=== PATIENT | male | born 1940 | race Hispanic/Latino ===

== ENCOUNTER 2019-04-27 12:34 | Inpatient (IN) | payer MEDICARE, OTHER ==
[2019-04-27] MEDS ORDERED: ATROPINE 1 MG/ML VIAL IV ONE ×2 (13:27→14:20)
[2019-04-27] MEDS ORDERED: ATROPINE 0.1% (1 MG/10 ML) CARDIAC SYRINGE ONE ×2 (13:37→14:32)
--- NOTE | 2019-04-27 14:06 | XRay Report ---
CHEST 1 VIEW INDICATION / CLINICAL INFORMATION: syncope. COMPARISON: None available. FINDINGS: SUPPORT DEVICES: None. HEART / MEDIASTINUM: Moderately enlarged LUNGS / PLEURA: There is pulmonary venous congestion with interstitial and early alveolar edema at th e bases. There may be a minimal right effusion. No pneumothorax. ADDITIONAL FINDINGS: No significant additional findings. IMPRESSION: 1 Moderately severe heart failure Signer Name: Aurelio Gregory MD Signed: 04/27/2019 2:01 PM Workstation Name: [id number]
[2019-04-27 14:08] LABS: Basophils % (Auto) 0.3 % (0.0-1.8); Eosinophils # (Auto) 0.2 K/mm3 (0.0-0.4); Eosinophils % (Auto) 1.7 % (0.0-4.3); Hematocrit 43.8 % (35.5-45.6); Hemoglobin 14.7 gm/dl (11.8-15.2); Lymphocytes # (Auto) 1.2 K/mm3 (1.2-5.4); Lymphocytes % (Auto) 12.8 % (13.4-35.0); Mean Corpuscular HGB Conc 34 % (32-34); Mean Corpuscular Volume 98 fl (84-94); Monocytes # (Auto) 0.7 K/mm3 (0.0-0.8); Monocytes % (Auto) 7.2 % (0.0-7.3); Platelet Count 140 K/mm3 (140-440); Red Blood Count 4.46 M/mm3 (3.65-5.03); Red Cell Distribution Width 15.1 % (13.2-15.2)
--- NOTE | 2019-04-27 14:08 | History and Physical Report ---
History of Present Illness Chief complaint: I just passed out History of present illness: 78 YO Male with Obesity Hypoventilation Syndrome, HTN, DM, CHF presents to ED for evaluation. PT states that he was in his bathroom having a bowel movement when he experienced an acute onset of lightheadedness and subsequent loss of consciousness. Pt fell onto the floor and sustained an abrasion to his forehead. Pt collier not recall how long he was unconscious, and does not remember any additional details. EMS notified, and upon arrival the patient was found to be in distress and transported to [facility]. Pt seen and evaluated in ED and found to have Hear Block, with symptomatic bradycardia. Pt treated with atropine without resolution of symptoms. Pt treated with external pacing. Cardiology consulted in ED. Pt admitted to ICU with continuous telemetry monitoring. Pt family at bedside. Advanced care planning conducted. Pt and family acknowledge understanding and agreement with care plan. Pt acknowledges dypsnea on exertion, shortness of breath, decreased exercise tolerance, and leg edema. Pt denies fever, chills, CP, NVD, Trauma, BRBPR, Productive Cough, or recent ill contacts. Past History Past Medical History: other (hpi) Past Surgical History: No surgical history, Other (reviewed) Social history: , lives with family Family history: no significant family history (reviewed) Medications and Allergies Allergies Allergy/AdvReac Type Severity Reaction Status Date / Time No Known Allergies Allergy Unverified 02/14/15 14:25 Home Medications Medication Instructions Recorded Confirmed Last Taken Type Furosemide [Lasix TAB] 40 mg PO QDAY 02/14/15 04/27/19 04/26/19 History Simvastatin [Zocor TAB] 40 mg PO QHS 02/14/15 04/27/19 04/26/19 History carvediloL [Coreg] 6.25 mg PO BID 02/14/15 04/27/19 04/26/19 History Allopurinol [Zyloprim] 300 mg PO QDAY 04/27/19 04/27/19 04/26/19 History Calcitriol [Rocaltrol] 0.25 mcg PO 3XW 04/27/19 04/27/19 Unknown History Glimepiride [Amaryl] 2 mg PO QAM 04/27/19 04/27/19 04/26/19 History Review of Systems Constitutional: no weight loss, no weight gain, no fever, no chills Ears, nose, mouth and throat: no ear pain, no ear discharge, no tinnitis, no decreased hearing, no nose pain Cardiovascular: shortness of breath, dyspnea on exertion, decreased exercise tolerance, no chest pain, no orthopnea, no palpitations Respiratory: no cough, no cough with sputum Gastrointestinal: no nausea, no vomiting, no diarrhea, no change in bowel habits Genitourinary Male: no hematuria, no flank pain, no discharge, no urinary hesitancy, no nocturia Rectal: no pain, no incontinence, no bleeding Musculoskeletal: no neck stiffness, no shooting arm pain, no low back pain, no shooting leg pain Integumentary: no rash, no pruritis, no redness, no sores, no wounds Neurological: no head injury, no transient paralysis, no paralysis, no weakness, no parathesias Psychiatric: no memory loss, no change in sleep habits, no insomnia, no hypersomnia, no change in libido Endocrine: no excessive thirst, no polyuria, no nocturia Hematologic/Lymphatic: no easy bruising, no easy bleeding, no lymphadenopathy, no lymphedema Allergic/Immunologic: no urticaria, no allergic rhinitis, no persistent infections, no anaphylaxis, no angioedema Exam - Constitutional Vitals: Temp Pulse Resp BP Pulse Ox 98.2 F 42 L 24 130/51 93 04/27/19 12:53 04/27/19 12:53 04/27/19 12:53 04/27/19 12:53 04/27/19 12:53 General appearance: Present: mild distress, obese - EENT Eyes: Present: PERRL ENT: hearing intact, clear oral mucosa - Neck Neck: Present: supple, normal ROM - Respiratory Respiratory effort: normal Respiratory: bilateral: CTA - Cardiovascular Heart Sounds: Present: S1 & S2. Absent: rub, click - Extremities Extremities: pulses symmetrical, No edema Peripheral Pulses: within normal limits - Abdominal General gastrointestinal: Present: soft, non-tender, non-distended, normal bowel sounds Male genitourinary: Present: normal - Integumentary Integumentary: Present: clear, warm, dry - Musculoskeletal Musculoskeletal: gait normal, strength equal bilaterally - Psychiatric Psychiatric: appropriate mood/affect, intact judgment & insight - Neurologic Neurologic: CNII-XII intact, moves all extremities Results - Labs CBC & Chem 7: 04/27/19 13:24 11/17/19 13:24 Assessment and Plan - Patient Problems (1) Heart block Current Visit: No Status: Acute Plan to address problem: Admit to ICU, External pacing, Atropine at bedside, Cardiology consulted in ED, Telemetry, Echo, serial EKG (2) CHF (congestive heart failure) Current Visit: No Status: Acute Qualifiers: Heart failure type: systolic Heart failure chronicity: acute on chronic Qualified Code(s): I50.23 - Acute on chronic systolic (congestive) heart failure Plan to address problem: Telemetry, Strict I/O, daily weight, echo, thyroid panel, magnesium level, cardiology consulted in ED, supplemental oxygen, Chest x ray, bnp (3) Symptomatic bradycardia Current Visit: No Status: Acute Plan to address problem: Telemetry, external pacing, atropine at bedside, supportive care. (4) KARINE (acute kidney injury) Current Visit: No Status: Acute Plan to address problem: IVF resuscitation therapy as tolerated, Nephrology consulted in ED. (5) HTN (hypertension) Current Visit: Yes Status: Acute Qualifiers: Hypertension type: essential hypertension Qualified Code(s): I10 - Essential (primary) hypertension Plan to address problem: Monitor bp q shift, supportive care, continue medical management (6) Diabetes Current Visit: Yes Status: Acute Plan to address problem: ADA diet, insulin, accu check, hypoglycemia protocol (7) DVT prophylaxis Current Visit: No Status: Acute Plan to address problem: SCD to BLE while in bed.
--- NOTE | 2019-04-27 14:15 | Emergency Department Report ---
ED Syncope HPI - General Chief Complaint: Syncope Stated Complaint: SYNCOPY/SOB Time Seen by Provider: 04/27/19 13:50 Source: patient, family, EMS Exam Limitations: no limitations - History of Present Illness Initial Comments: Patient is a 78-year-old male that comes emergency with complaints of syncopal episode 1 with brief loss of consciousness. patient states she was sitting on the toilet at home and became lightheaded and passed out. Patient's loss of consciousness was brief. Patient states he sustained a an abrasion to his forehead and eyebrows. Patient denies any complaints at this time except for shortness of breath. Patient states he is short of breath which is worse with exertion and better with rest. Patient states she's had a cough recently and upper respiratory symptoms for 1-2 weeks. Timing/Prior Episodes: single episode today Precipitating Factors: Positive: diaphoresis, lightheadedness Context: sitting Loss of Consciousness: brief (seconds) Current Symptoms: lightheadedness, other - Related Data Allergies/Adverse Reactions: Allergies No Known Allergies Allergy (Unverified 02/14/15 14:25) Home Medications: Ambulatory Orders Furosemide [Lasix TAB] 40 mg PO QDAY 02/14/15 Simvastatin [Zocor TAB] 40 mg PO QHS 02/14/15 carvediloL [Coreg] 6.25 mg PO BID 02/14/15 Allopurinol [Zyloprim] 300 mg PO QDAY 04/27/19 Calcitriol [Rocaltrol] 0.25 mcg PO 3XW 04/27/19 Glimepiride [Amaryl] 2 mg PO QAM 04/27/19 ED Review of Systems ROS: Stated complaint: SYNCOPY/SOB Other details as noted in HPI Constitutional: denies: chills, fever Eyes: denies: eye pain, eye discharge, vision change ENT: denies: ear pain, throat pain Respiratory: shortness of breath, SOB with exertion, SOB at rest. denies: cough, wheezing Cardiovascular: dyspnea on exertion. denies: chest pain, palpitations Endocrine: no symptoms reported Gastrointestinal: denies: abdominal pain, nausea, diarrhea Genitourinary: denies: urgency, dysuria Musculoskeletal: denies: back pain, joint swelling, arthralgia Skin: denies: rash, lesions Neurological: denies: headache, weakness, paresthesias Psychiatric: denies: anxiety, depression Hematological/Lymphatic: denies: easy bleeding, easy bruising ED Past Medical Hx - Past Medical History Previous Medical History?: Yes Hx Hypertension: Yes Hx Congestive Heart Failure: Yes Hx Diabetes: Yes (non-insulin dependent) Hx Renal Disease: Yes (Dr. Ibanez; not on HD) Additional medical history: kidney failure - Social History Smoking Status: Former Smoker Substance Use Type: None - Medications Home Medications: Home Medications Medication Instructions Recorded Confirmed Last Taken Type Furosemide [Lasix TAB] 40 mg PO QDAY 02/14/15 04/27/19 04/26/19 History Simvastatin [Zocor TAB] 40 mg PO QHS 02/14/15 04/27/19 04/26/19 History carvediloL [Coreg] 6.25 mg PO BID 02/14/15 04/27/19 04/26/19 History Allopurinol [Zyloprim] 300 mg PO QDAY 04/27/19 04/27/19 04/26/19 History Calcitriol [Rocaltrol] 0.25 mcg PO 3XW 04/27/19 04/27/19 Unknown History Glimepiride [Amaryl] 2 mg PO QAM 04/27/19 04/27/19 04/26/19 History ED Physical Exam - General Limitations: No Limitations ED Course Vital Signs 04/27/19 04/27/19 04/27/19 12:53 13:01 13:15 Temperature 98.2 F Pulse Rate 42 L 38 L Respiratory 24 14 17 Rate Blood Pressure 130/51 130/51 130/51 Blood Pressure [Left] O2 Sat by Pulse 93 93 92 Oximetry 04/27/19 04/27/19 04/27/19 13:31 13:45 14:01 Temperature Pulse Rate 72 Respiratory 21 17 13 Rate Blood Pressure 119/39 122/48 Blood Pressure [Left] O2 Sat by Pulse 94 96 Oximetry 04/27/19 04/27/19 04/27/19 14:15 14:31 14:58 Temperature Pulse Rate 45 L Respiratory 15 Rate Blood Pressure 122/56 138/75 140/80 Blood Pressure [Left] O2 Sat by Pulse 98 99 Oximetry 04/27/19 04/27/19 04/27/19 15:26 16:17 18:43 Temperature Pulse Rate 45 L 50 L 44 L Respiratory 14 17 Rate Blood Pressure Blood Pressure 124/52 133/61 [Left] O2 Sat by Pulse 98 97 Oximetry - Reevaluation(s) Reevaluation #1: She'll evaluation done. Patient placed on a pacer and his rate improved. Patient captured at 10 mA. Cardiology will be consult. Patient states after being placed on the pacer his shortness of breath improved. 04/27/19 13:50 Reevaluation #2: I discussed all results with patient. I discussed plan of care with patient. Patient agrees plan of care and admission. Patient will be admitted to the hospitalist service. 04/27/19 14:19 - Consultations Consultation #1: cardiology consult. Dr. Cedric Rasmussen states that he is going to come and see the patient. 04/27/19 14:16 Consultation #2: Hospitalist consult for admission. Hospitalist admit patient. 04/27/19 14:17 ED Medical Decision Making - Lab Data Result diagrams: 04/27/19 13:24 04/27/19 13:24 - EKG Data EKG shows normal: axis, intervals, QRS complexes, ST-T waves Rate: bradycardia - EKG Data Interpretation: other (junctional rhythm noted. Prolonged QRS consistent with a right bundle branch block.) - Radiology Data Radiology results: report reviewed, image reviewed CT head/brain wo con INDICATION / CLINICAL INFORMATION: 78 years Male; Syncope. TECHNIQUE: Routine CT head without contrast. All CT scans at this location are performed using CT dose reduction for ALARA by means of automated exposure control. COMPARISON: CT scan of the brain from 02/14/2019 FINDINGS: BRAIN / INTRACRANIAL CONTENTS: No acute hemorrhage, mass effect, midline shift, hydrocephalus, or acute, large territorial infarct. No chronic infarct or focal area of encephalomalacia. Moderate cortical involution is seen. Bilateral symmetric prominent extracerebral space in the frontal region due to involution. Periventricular and deep hemispheric white matter are normal. CRANIOCERVICAL JUNCTION: No significant abnormality. ORBITS: No significant abnormality of visualized orbits. SINUSES / MASTOIDS: No significant abnormality of the visualized paranasal sinuses or mastoid air cells. ADDITIONAL FINDINGS: Soft tissue emphysema is seen bilaterally in the suprazy gomatic emission technician space, right buccal space and in the cheek. These appear to be along blood vess els. Has there been recent injection of infusion intravenously IMPRESSION: I do not see acute parenchymal lesion in the brain Air bubbles in the deep spaces of the neck bilaterally, probably in the blood vessels Recent intravenous injection or infusion CHEST 1 VIEW INDICATION / CLINICAL INFORMATION: syncope. COMPARISON: None available. FINDINGS: SUPPORT DEVICES: None. HEART / MEDIASTINUM: Moderately enlarged LUNGS / PLEURA: There is pulmonary venous congestion with interstitial and early alveolar edema at the bases. There may be a minimal right effusion. No pneumothorax. ADDITIONAL FINDINGS: No significant additional findings. IMPRESSION: 1 Moderately severe heart failure - Medical Decision Making Patient is a 78-year-old male that presents emergency room with syncope. Patient sustained an abrasion to his forehead. Patient brought in by EMS and found to be bradycardic. Patient's clinical findings consistent with some diabetic bradycardia. Patient placed on a external pacer and given atropine. Patient responded temporarily to atropine and was then placed on an external pacer. Patient captured with the external pacer however was unable to get a heart rate above 50. Cardiology consult and early in the ER visit. Cardiology stated they're coming to place a temporary pacer. Hospitalist admit the patient. Patient's labs unremarkable. Patient's chest x-ray shows CHF. EKG consistent with junctional bradycardia. - Differential Diagnosis symptomatic bradycardia. Syncope. Facial abrasion. Critical Care Time: Yes Critical care time in (mins) excluding proc time.: 35 Critical care attestation.: If time is entered above; I have spent that time in minutes in the direct care of this critically ill patient, excluding procedure time. Critical Care Time: 35 minutes ED Disposition Clinical Impression: Hypoxia, Symptomatic bradycardia Syncope Qualifiers: Syncope type: unspecified Qualified Code(s): R55 - Syncope and collapse Abrasion of forehead Qualifiers: Encounter type: initial encounter Qualified Code(s): S00.81XA - Abrasion of other part of head, initial encounter CHF (congestive heart failure) Qualifiers: Heart failure type: systolic Heart failure chronicity: acute on chronic Qualified Code(s): I50.23 - Acute on chronic systolic (congestive) heart failure Disposition: OP ADMIT IP TO THIS HOSP Is pt being admited?: Yes Does the pt Need Aspirin: No Condition: Critical Time of Disposition: 14:16
[2019-04-27 14:23] LABS: INR 1.19 (0.87-1.13)
[2019-04-27 14:40] LABS: Alanine Aminotransferase 61 units/L (7-56); Albumin 3.6 g/dL (3.9-5); BUN/Creatinine Ratio 19; Blood Urea Nitrogen 32 mg/dL (9-20); Calcium 9.1 mg/dL (8.4-10.2); Hemolysis Index 8
[2019-04-27] MEDS ORDERED: DEXTROSE 50% IN WATER (25GM) 50 ML SYRINGE IV PRN (15:44)
--- NOTE | 2019-04-27 15:53 | Cat Scan Report ---
CT head/brain wo con INDICATION / CLINICAL INFORMATION: 78 years Male; Syncope. TECHNIQUE: Routine CT head without contrast. All CT scans at this location are performed using CT dos e reduction for ALARA by means of automated exposure control. COMPARISON: CT scan of the brain from 02/14/2019 FINDINGS: BRAIN / INTRACRANIAL CONTENTS: No acute hemorrhage, mass effect, midline shift, hydrocephalus, or ac [place], large territorial infarct. No chronic infarct or focal area of encephalomalacia. Moderate cortic al involution is seen. Bilateral symmetric prominent extracerebral space in the frontal region due to involution. Periventricular and deep hemispheric white matter are normal. CRANIOCERVICAL JUNCTION: No significant abnormality. ORBITS: No significant abnormality of visualized orbits. SINUSES / MASTOIDS: No significant abnormality of the visualized paranasal sinuses or mastoid air vimal ls. ADDITIONAL FINDINGS: Soft tissue emphysema is seen bilaterally in the suprazygomatic air moving technician space , right buccal space and in the cheek. These appear to be along blood vessels. Has there been recent injection of infusion intravenously IMPRESSION: I do not see acute parenchymal lesion in the brain Air bubbles in the deep spaces of the neck bilaterally, probably in the blood vessels Recent intraven ous injection or infusion Signer Name: Aimee Munoz MD Signed: 04/27/2019 3:49 PM Workstation Name: [id number]
[2019-04-27] MEDS ORDERED: INSULIN REGULAR, HUMAN 100 UNITS/1 ML ONE (18:29)
[2019-04-27] MEDS: INSULIN LISPRO 100 UNIT/ML SUB-Q SCH (18:37)
[2019-04-27] MEDS ORDERED: LIDOCAINE (1%) 10 MG/1 ML VIAL 20 ML MDV ONE (20:42)
[2019-04-27] MEDS ORDERED: SODIUM CHLORIDE IRRI 500 ML 500 ML IR ONE (20:42)
[2019-04-27] MEDS ORDERED: fentaNYL 100 MCG/2 ML INJ ONE (20:43)
[2019-04-27] MEDS ORDERED: MIDAZOLAM 2 MG/2 ML INJ ONE (20:43)
[2019-04-27] MEDS ORDERED: ceFAZolin/Water 2 GM/20 ML 2 GM/20 ML SYRINGE IV ONE (20:43)
[2019-04-27] MEDS ORDERED: SODIUM CHLORIDE 0.9% 500 ML 500 ML ONE (21:01)
--- NOTE | 2019-04-27 21:50 | Cardiac Catherization Report ---
BRIEF HISTORY: The patient is a 78-year-old gentleman who had a syncopal episode at home and in the Emergency Room, was noted to have bradycardia with complete heart block and a ventricular escape rhythm. He was short of breath with this rhythm. He improved and stabilized with an external pacemaker. A transvenous pacemaker was felt to be most appropriate treatment at this time. PROCEDURE: The patient was prepped and draped in a sterile fashion exposing the right femoral region. He received subcutaneous Xylocaine. A 6-Uzbek sheath was introduced in the right femoral vein via the Seldinger technique. A 6-Uzbek balloon-tipped pacemaker catheter was advanced under fluoroscopy and positioned in the right ventricle. It was sutured in place. Threshold of 1 milliamp was achieved and it was set at a synchronous MA of 3. FINAL IMPRESSION: Complete heart block with bradycardia and shortness of breath. A temporary pacemaker was successfully placed to stabilize the patient. COMPLICATIONS: None. BLOOD LOSS: 5-10 mL TISSUE SAMPLES: None. PREPROCEDURE DIAGNOSIS: Complete heart block with bradycardia. POSTPROCEDURE DIAGNOSIS: Complete heart block with bradycardia. JOB# [id number] EZEKIEL/VITOR
--- NOTE | 2019-04-27 23:35 | Consultation ---
HISTORY OF PRESENT ILLNESS: The patient is a 78-year-old male with multiple medical problems, well known to Dr. Carlos Glover who has a history of hypertension, diabetes, congestive heart failure, chronic kidney disease, previous TIA and prior history of smoking. There is no history of coronary artery disease, cardiomyopathy, valvular heart disease. He has also had chronic ankle edema with venous insufficiency, therapies in the past that did not seem to improve the swelling. He has been experiencing some dyspnea on exertion lately and some mild fatigue. There has been no chest pain. Earlier today, he became lightheaded and lost consciousness on the toilet. He sustained a head injury. He did not describe any palpitations, fever, chills, cough, fever, sputum production, dysuria or skin lesions. He did not describe any neurologic symptoms. He states that he has lost some weight in the past. He is well known to Dr. Glover and has had an ultrasound of the heart, not long ago. He has been compliant with medications. He states his blood pressure has been under control. He has not had any bradyarrhythmias in the past. He has been on a beta-tara. He did not describe any thyroid issues. SOCIAL HISTORY: Smoking, prior smoker. Alcohol. No heavy use. FAMILY HISTORY: Unremarkable. MEDICATIONS: See the nurse's list. ALLERGIES: None. OPERATIONS: None described. REVIEW OF SYSTEMS: No other complaints or medical problems other than what is described in the history of present illness. He sees Dr. Ibanez for chronic kidney disease. He does not describe any clearcut sleep disorders, but his sleep is not that great. PHYSICAL EXAMINATION: GENERAL: Well-developed, moderately obese, no acute distress. Alert, oriented, cooperative. Mental status normal. EYES, NOSE, AND THROAT: Unremarkable. NECK: Reveals moderate JVD. There are no bruits. Neck is supple, no masses. LUNGS: Clear. No labored respirations. HEART: Regular rhythm. Heart sounds distant. No rubs, murmurs, gallops appreciable. External pacemaker in place. ABDOMEN: Soft, nontender, no masses. EXTREMITIES: No cyanosis, clubbing, 1+ pedal edema with venous insufficiency changes. Peripheral pulses are intact, but diminished. NEUROLOGIC: Symmetrical. SKIN: Clear. LABORATORY DATA: EKG shows complete heart block with ventricular escape rhythm. IMPRESSION: 1. Complete heart block with bradycardia and syncope today. He has been on a beta tara, so this may be playing a role. Consider sick sinus syndrome. TSH is minimally elevated, so this is probably not an issue. 2. History of congestive heart failure with mild diastolic heart failure at this time. 3. Chronic kidney disease, stable. 4. Diabetes, fair control. 5. Obesity with possible obesity hypoventilation syndrome and sleep apnea. 6. Venous insufficiency with chronic edema. 7. History of transient ischemic attack. Note there is no history of hyperlipidemia or coronary artery disease. PLAN: Temporary pacemaker. Hold beta tara, reviewed the previous workup by Dr. Carlos Glover, consider permanent pacemaker for persistent bradycardia. JOB# [id number] JDS/NTS
[2019-04-28] MEDS: INSULIN LISPRO 100 UNIT/ML SUB-Q SCH ×4 (01:10→18:48)
[2019-04-28] MEDS ORDERED: ALUM-MAG HYDROXIDE-SIMETHICONE 200-200-20MG/5ML ORAL LIQD 30 ML PO PRN (03:35)
--- NOTE | 2019-04-28 09:26 | Consultation ---
History of Present Illness Consult date: 04/28/19 Requesting physician: LAY CANALES Reason for consult: other (Heart Block requiring pacing; Syncope) History of present illness: PCCM CONSULT NOTE (Full dictation # ) Please see dictated notes for full details Past History Past Medical History: other (hpi) Past Surgical History: No surgical history, Other (reviewed) Social history: , lives with family Family history: no significant family history (reviewed) Medications and Allergies Allergies Allergy/AdvReac Type Severity Reaction Status Date / Time No Known Allergies Allergy Unverified 02/14/15 14:25 Home Medications Medication Instructions Recorded Confirmed Last Taken Type Furosemide [Lasix TAB] 40 mg PO QDAY 02/14/15 04/27/19 04/26/19 History Simvastatin [Zocor TAB] 40 mg PO QHS 02/14/15 04/27/19 04/26/19 History carvediloL [Coreg] 6.25 mg PO BID 02/14/15 04/27/19 04/26/19 History Allopurinol [Zyloprim] 300 mg PO QDAY 04/27/19 04/27/19 04/26/19 History Calcitriol [Rocaltrol] 0.25 mcg PO 3XW 04/27/19 04/27/19 Unknown History Glimepiride [Amaryl] 2 mg PO QAM 04/27/19 04/27/19 04/26/19 History Active Meds: Active Medications Al Hydrox/Mg Hydrox/Simethicone (Alum-Mag Hydrox-Simeth [id number]/5ml) 30 ml PO Q6H PRN PRN Reason: Indigestion Last Admin: 04/28/19 03:55 Dose: 30 ml Documented by: Dextrose (D50w (25gm) Syringe) 50 ml IV Q30MIN PRN; Protocol PRN Reason: Hypoglycemia Insulin Human Lispro (Humalog) 0 unit SUB-Q Q6HR MARTINEZ; Protocol Last Admin: 04/28/19 06:31 Dose: Not Given Documented by: Latanoprost (Latanoprost 0.005%) 1 drops OU QHS MARTINEZ Sodium Chloride (Sodium Chloride Flush Syringe 10 Ml) 10 ml IV BID MARTINEZ Sodium Chloride (Sodium Chloride Flush Syringe 10 Ml) 10 ml IV PRN PRN PRN Reason: LINE FLUSH Physical Examination Vital signs: Vital Signs Temp Pulse Resp BP Pulse Ox 98.2 F 42 L 24 130/51 93 04/27/19 12:53 04/27/19 12:53 04/27/19 12:53 04/27/19 12:53 04/27/19 12:53 Results - Laboratory Findings CBC and BMP: 04/27/19 13:24 04/27/19 13:24 PT/INR, D-dimer PT 15.0 Sec. (12.2-14.9) H 04/27/19 13:24 INR 1.19 (0.87-1.13) H 04/27/19 13:24 Abnormal lab findings: Abnormal Labs 04/27/19 04/27/19 04/27/19 13:24 13:24 13:24 MCV 98 H MCH 33 H Lymph % (Auto) 12.8 L Seg Neutrophils % 78.0 H PT 15.0 H INR 1.19 H Carbon Dioxide 21 L BUN 32 H Creatinine 1.7 H Glucose 297 H POC Glucose AST 43 H ALT 61 H NT-Pro-B Natriuret Pep Albumin 3.6 L TSH 04/27/19 04/27/19 04/27/19 13:24 13:24 18:21 MCV MCH Lymph % (Auto) Seg Neutrophils % PT INR Carbon Dioxide BUN Creatinine Glucose POC Glucose 252 H AST ALT NT-Pro-B Natriuret Pep 3410 H Albumin TSH 4.790 H
[2019-04-28] MEDS ORDERED: TRAVOPROST OU SCH (10:00)
[2019-04-28] MEDS ORDERED: BUMETANIDE 1 MG/4 ML INJ IV ONE (10:29)
--- NOTE | 2019-04-28 10:32 | Consultation ---
History of Present Illness - Reason for Consult chronic renal failure - History of Present Illness 78-year-old gentleman with a significant medical history of hypertension, congestive heart failure, chronic kidney disease. Admitted with syncope while using the bathroom. He was also found to have symptomatic bradycardia nephrology consulted He reports some cough with some persistent phlegm also complains of subjective fevers Denies sick contacts he has associated orthopnea and PND as well as lower ext remity edema He was admitted to the ICU and was started on external pacing for his bradycardia he does report history of chronic kidney disease Dr. Ibanez creatinine in 2015 was 2.1 Past History Past Medical History: other (hpi) Past Surgical History: No surgical history, Other (reviewed) Social history: , lives with family Family history: no significant family history (reviewed) Medications and Allergies Allergies Allergy/AdvReac Type Severity Reaction Status Date / Time No Known Allergies Allergy Unverified 02/14/15 14:25 Home Medications Medication Instructions Recorded Confirmed Last Taken Type Furosemide [Lasix TAB] 40 mg PO QDAY 02/14/15 04/27/19 04/26/19 History Simvastatin [Zocor TAB] 40 mg PO QHS 02/14/15 04/27/19 04/26/19 History carvediloL [Coreg] 6.25 mg PO BID 02/14/15 04/27/19 04/26/19 History Allopurinol [Zyloprim] 300 mg PO QDAY 04/27/19 04/27/19 04/26/19 History Calcitriol [Rocaltrol] 0.25 mcg PO 3XW 04/27/19 04/27/19 Unknown History Glimepiride [Amaryl] 2 mg PO QAM 04/27/19 04/27/19 04/26/19 History Active Meds: Active Medications Al Hydrox/Mg Hydrox/Simethicone (Alum-Mag Hydrox-Simeth 409-512-94jo/5ml) 30 ml PO Q6H PRN PRN Reason: Indigestion Last Admin: 04/28/19 03:55 Dose: 30 ml Documented by: Dextrose (D50w (25gm) Syringe) 50 ml IV Q30MIN PRN; Protocol PRN Reason: Hypoglycemia Insulin Human Lispro (Humalog) 0 unit SUB-Q Q6HR MARTINEZ; Protocol Last Admin: 04/28/19 06:31 Dose: Not Given Documented by: Latanoprost (Latanoprost 0.005%) 1 drops OU QHS MARTINEZ Sodium Chloride (Sodium Chloride Flush Syringe 10 Ml) 10 ml IV BID MARTINEZ Sodium Chloride (Sodium Chloride Flush Syringe 10 Ml) 10 ml IV PRN PRN PRN Reason: LINE FLUSH Review of Systems Constitutional: no weight loss, no weight gain, no fever, no chills (ID and GERD outbreak of resected as apples and robust) Ears, nose, mouth and throat: no deferred, no ear pain, no ear discharge Cardiovascular: orthopnea, edema, dyspnea on exertion, no chest pain, no rapid/irregular heart beat Respiratory: cough with sputum, no cough Gastrointestinal: no abdominal pain, no nausea, no vomiting Genitourinary Male: no dysuria, no hematuria, no flank pain Musculoskeletal: no neck stiffness, no neck pain, no shooting arm pain Integumentary: no deferred, no rash, no pruritis Neurological: no head injury, no transient paralysis, no paralysis, no weakness Psychiatric: no anxiety, no memory loss, no change in sleep habits Endocrine: no cold intolerance, no heat intolerance Hematologic/Lymphatic: no easy bruising, no easy bleeding Allergic/Immunologic: no urticaria, no allergic rhinitis Exam - Vital Signs Vital signs: Vital Signs Temp Pulse Resp BP Pulse Ox 98.2 F 42 L 24 130/51 93 04/27/19 12:53 04/27/19 12:53 04/27/19 12:53 04/27/19 12:53 04/27/19 12:53 - General Appearance General appearance: well-developed, well-nourished EENT: ATNC, PERRL, mucous membranes moist Neck: Present: neck supple Respiratory: Decreased Breath Sounds Heart: regular, S1S2 Gastrointestinal: Present: normal, normoactive bowel sounds Integumentary: no rash Neurologic: alert and oriented x3, CN 3-12 intact Musculoskeletal: Present: other (edema) Psychiatric: mood/affect appropriate Results - Lab Results 04/27/19 13:24 04/27/19 13:24 Most recent lab results Calcium 9.1 mg/dL (8.4-10.2) 04/27/19 13:24 Magnesium 2.10 mg/dL (1.7-2.3) 04/27/19 13:24 - Image Kidney/bladder ultrasound: other Assessment and Plan - Patient Problems (1) Chronic kidney disease, stage III (moderate) Current Visit: Yes Status: Acute Plan to address problem: Chronic kidney disease stage III creatinine in 2015 was 2.11 Will Horacio to office records to see what recent baseline creatinine has been Current creatinine is 1.7 Chest x-ray with pulmonary congestion Will initiate diuretics Obtain renal ultrasound avoid nephrotoxins (2) CHF (congestive heart failure) Current Visit: Yes Status: Acute Plan to address problem: Congestive heart failure Obtain echocardiogram Chest x-ray revealed With bilateral right greater than left basilar opacities consistent with pulmonary congestion will give 2 mg of Bumex now then continue Bumex 1 mg IV twice a day (3) Symptomatic bradycardia Current Visit: Yes Status: Acute Plan to address problem: Symptomatic bradycardia has received external pacing (4) Metabolic acidosis Current Visit: Yes Status: Acute Plan to address problem: Metabolic acidosis Due to chronic kidney disease should improve with diuresis
[2019-04-28] MEDS ORDERED: BUMETANIDE 2.5 MG/10 ML VIAL IV ONE (11:00)
[2019-04-28 12:46] LABS: Calcium 9.1 mg/dL (8.4-10.2)
--- NOTE | 2019-04-28 13:25 | Progress Note ---
Assessment and Plan Complete heart block s/p transvenous pacemaker coreg discontinued Chronic kidney disease Congestive heart failure History of COPD Elevated transaminases Subjective Date of service: 04/28/19 Interval history: Transvenous pacemaker of right groin. Patient complains of shortness of breath with coughs and congestion. Objective Vital Signs Temp Pulse Pulse Pulse Resp BP BP 04/28/19 12:50 70 15 142/80 04/28/19 12:40 70 19 142/80 04/28/19 12:30 70 13 142/80 04/28/19 12:20 69 11 L 142/80 04/28/19 12:10 70 18 142/80 04/28/19 12:00 70 70 20 123/70 04/28/19 11:50 71 13 123/70 04/28/19 11:40 69 18 123/70 04/28/19 11:30 67 22 123/70 04/28/19 11:20 73 17 123/70 04/28/19 11:10 68 13 123/70 04/28/19 11:00 75 17 135/81 04/28/19 10:50 69 13 135/81 04/28/19 10:40 68 15 135/81 04/28/19 10:30 67 17 135/81 04/28/19 10:20 71 12 135/81 04/28/19 10:10 69 12 135/81 04/28/19 10:00 70 16 126/72 04/28/19 09:50 73 17 126/72 04/28/19 09:40 68 27 H 126/72 04/28/19 09:30 68 21 136/70 04/28/19 09:20 67 24 136/70 04/28/19 09:10 71 30 H 136/70 04/28/19 09:00 73 16 136/70 04/28/19 08:50 77 13 125/56 04/28/19 08:40 73 24 125/56 04/28/19 08:30 67 12 125/56 04/28/19 08:20 67 12 125/56 04/28/19 08:10 67 16 125/56 04/28/19 08:00 98.4 F 67 67 15 125/56 04/28/19 07:50 68 18 125/56 04/28/19 07:40 67 16 125/56 11/18/19 07:30 67 17 125/56 18/19 07:20 67 18 125/56 18/19 07:10 67 16 125/56 18/19 07:00 67 15 128/63 18/19 06:50 68 17 128/63 18/19 06:40 67 18 128/63 18/19 06:30 67 20 128/63 18/19 06:20 67 16 128/63 18/19 06:10 68 17 128/63 18/19 06:00 68 19 140/93 18/19 05:50 69 11 L 140/93 18/19 05:40 68 16 140/93 18/19 05:30 69 19 140/93 18/19 05:20 69 21 140/93 18/19 05:10 68 12 140/93 18/19 05:00 70 19 151/84 18/19 04:50 68 12 151/84 18/19 04:40 67 14 151/84 18/19 04:30 67 13 151/84 18/19 04:20 69 18 151/84 18/19 04:10 68 12 151/84 18/19 04:00 97.9 F 68 15 145/82 18/19 03:50 67 21 145/82 18/19 03:40 68 10 L 145/82 18/19 03:30 67 12 145/82 18/19 03:20 68 14 145/82 18/19 03:10 69 22 145/82 18/19 03:00 67 74 69 20 147/60 18/19 02:50 68 17 147/60 18/19 02:40 68 18 147/60 18/19 02:30 71 17 147/60 18/19 02:20 69 16 147/60 18/19 02:10 69 18 147/60 18/19 02:00 68 17 152/113 18/19 01:50 69 12 152/113 18/19 01:40 68 18 152/113 18/19 01:30 68 18 152/113 18/19 01:20 67 17 152/113 11/18/19 01:10 67 15 152/113 04/28/19 01:00 67 67 69 15 04/28/19 00:59 67 11 L 04/27/19 23:57 69 69 04/27/19 22:00 70 04/27/19 20:31 19 114/60 04/27/19 20:21 15 114/60 04/27/19 20:11 19 107/79 04/27/19 20:01 12 107/79 04/27/19 19:51 17 141/54 04/27/19 19:41 20 181/103 04/27/19 19:31 18 181/103 04/27/19 19:21 12 181/103 04/27/19 19:10 16 140/80 04/27/19 19:01 10 L 181/103 04/27/19 18:51 12 181/103 04/27/19 18:43 44 L 17 133/61 04/27/19 18:41 21 133/61 04/27/19 18:31 14 133/61 04/27/19 18:21 17 133/61 04/27/19 18:11 20 140/57 04/27/19 18:01 72 17 140/57 04/27/19 17:51 77 16 140/57 04/27/19 17:41 71 19 124/52 04/27/19 17:31 18 124/52 04/27/19 17:21 14 124/52 04/27/19 17:11 69 10 L 124/52 04/27/19 17:01 18 124/52 04/27/19 16:51 14 124/52 04/27/19 16:41 17 124/52 04/27/19 16:31 18 124/52 04/27/19 16:21 13 124/52 04/27/19 16:17 50 L 14 124/52 04/27/19 16:11 18 140/80 04/27/19 16:01 16 140/80 04/27/19 15:51 16 140/80 04/27/19 15:41 14 130/48 04/27/19 15:31 15 130/48 04/27/19 15:26 45 L 04/27/19 15:21 23 130/48 04/27/19 14:58 140/80 04/27/19 14:31 138/75 04/27/19 14:15 45 L 15 122/56 04/27/19 14:01 13 122/48 04/27/19 13:45 17 119/39 04/27/19 13:31 72 21 Pulse Ox 04/28/19 12:50 96 04/28/19 12:40 95 04/28/19 12:30 95 04/28/19 12:20 96 04/28/19 12:10 98 04/28/19 12:00 95 04/28/19 11:50 95 04/28/19 11:40 95 04/28/19 11:30 96 04/28/19 11:20 94 04/28/19 11:10 94 04/28/19 11:00 94 04/28/19 10:50 95 04/28/19 10:40 95 04/28/19 10:30 04/28/19 10:20 04/28/19 10:10 04/28/19 10:00 80 L 04/28/19 09:50 75 L 04/28/19 09:40 04/28/19 09:30 04/28/19 09:20 04/28/19 09:10 04/28/19 09:00 04/28/19 08:50 04/28/19 08:40 04/28/19 08:30 04/28/19 08:20 04/28/19 08:10 04/28/19 08:00 82 L 04/28/19 07:50 04/28/19 07:40 04/28/19 07:30 04/28/19 07:20 04/28/19 07:10 04/28/19 07:00 95 04/28/19 06:50 95 04/28/19 06:40 95 04/28/19 06:30 95 18 06:20 94 18 06:10 95 04/28/19 06:00 94 18 05:50 95 18/19 05:40 94 18/19 05:30 96 18/19 05:20 95 18/19 05:10 94 18 05:00 95 18 04:50 93 1819 04:40 96 18 04:30 91 18/19 04:20 94 18/19 04:10 93 18/19 04:00 95 18/19 03:50 94 18/19 03:40 94 18/19 03:30 94 18/19 03:20 93 18/19 03:10 94 18/19 03:00 95 18/19 02:50 96 18/ 02:40 97 18/ 02:30 76 L 18 02:20 95 18/19 02:10 97 18/19 02:00 96 04/28/19 01:50 94 18/ 01:40 96 18/ 01:30 98 18/ 01:20 98 18 01:10 98 18/ 01:00 95 04/28/ 00:59 95 04/27/19 23:57 1719 22:00 19 20:31 98 17/19 20:21 92 17/19 20:11 96 17/19 20:01 99 17/19 19:51 96 17/19 19:41 98 17/19 19:31 97 17/19 19:21 96 17/19 19:10 97 17/19 19:01 96 17/19 18:51 97 17/19 18:43 97 17/19 18:41 99 17/19 18:31 97 17/19 18:21 97 17/19 18:11 96 17/19 18:01 98 17/19 17:51 97 17/19 17:41 98 17/19 17:31 99 17/19 17:21 96 17/19 17:11 96 17/19 17:01 98 17/19 16:51 98 17/19 16:41 97 17/19 16:31 99 17/19 16:21 92 17/19 16:17 98 17/19 16:11 98 17/19 16:01 98 17/19 15:51 98 17/19 15:41 97 11/17/19 15:31 94 04/27/19 15:26 04/27/19 15:21 85 04/27/19 14:58 04/27/19 14:31 99 04/27/19 14:15 98 04/27/19 14:01 96 04/27/19 13:45 94 04/27/19 13:31 - Physical Examination General: No Apparent Distress HEENT: Positive: PERRL Neck: Positive: neck supple Cardiac: Positive: Other (paced) Lungs: Positive: Decreased Breath Sounds - Labs and Meds Cardiac Enzymes 04/27/19 Range/Units 13:24 AST 43 H (5-40) units/L Coagulation 04/27/19 Range/Units 13:24 PT 15.0 H (12.2-14.9) Sec. INR 1.19 H (0.87-1.13) CBC 04/27/19 Range/Units 13:24 WBC 9.6 (4.5-11.0) K/mm3 RBC 4.46 (3.65-5.03) M/mm3 Hgb 14.7 (11.8-15.2) gm/dl Hct 43.8 (35.5-45.6) % Plt Count 140 (140-440) K/mm3 Lymph # 1.2 (1.2-5.4) K/mm3 [place] # 0.7 (0.0-0.8) K/mm3 Eos # 0.2 (0.0-0.4) K/mm3 Baso # 0.0 (0.0-0.1) K/mm3 Comprehensive Metabolic Panel 04/27/19 04/28/19 Range/Units 13:24 12:08 Sodium 141 140 (137-145) mmol/L Potassium 4.4 4.5 (3.6-5.0) mmol/L Chloride 104.6 102.9 (98-107) mmol/L Carbon Dioxide 21 L 23 (22-30) mmol/L BUN 32 H 28 H (9-20) mg/dL Creatinine 1.7 H 1.5 (0.8-1.5) mg/dL Glucose 297 H 212 H (75-100) mg/dL Calcium 9.1 9.1 (8.4-10.2) mg/dL AST 43 H (5-40) units/L ALT 61 H (7-56) units/L Alkaline Phosphatase 81 (35-129) units/L Total Protein 6.5 (6.3-8.2) g/dL Albumin 3.6 L (3.9-5) g/dL
--- NOTE | 2019-04-28 15:12 | Consultation ---
History of Present Illness Consult date: 04/28/19 Requesting physician: EMILY JEWELL Reason for consult: other (Syncope with symptomatic bradycardia) History of present illness: 78 YO Male with Obesity Hypoventilation Syndrome, HTN, DM, CHF presents to ED for evaluation. PT states that he was in his bathroom having a bowel movement when he experienced an acute onset of lightheadedness and subsequent loss of consciousness. Pt fell onto the floor and sustained an abrasion to his forehead. Pt collier not recall how long he was unconscious, and does not remember any addit ional details. EMS notified, and upon arrival the patient was found to be in distress and transported to [facility]. Pt seen and evaluated in ED and found to have Hear Block, with symptomatic bradycardia. Pt treated with atropine without resolution of symptoms. Pt treated with external pacing. Cardiology consulted in ED. Patient was taken to laboratory analyst and femoral temporary pacemaker placed. He is admitted in the ICU for monitoring. he was seen and examined. Vitals, labs, medications, chart and imaging were reviewed. He is lying peacefully in bed and denies any symptoms. he is paced on telemetry Past History Past Medical History: other (hpi) Past Surgical History: No surgical history, Other (reviewed) Social history: , lives with family Family history: no significant family history (reviewed) Medications and Allergies Allergies Allergy/AdvReac Type Severity Reaction Status Date / Time No Known Allergies Allergy Unverified 02/14/15 14:25 Home Medications Medication Instructions Recorded Confirmed Last Taken Type Furosemide [Lasix TAB] 40 mg PO QDAY 02/14/15 04/27/19 04/26/19 History Simvastatin [Zocor TAB] 40 mg PO QHS 02/14/15 04/27/19 04/26/19 History carvediloL [Coreg] 6.25 mg PO BID 02/14/15 04/27/19 04/26/19 History Allopurinol [Zyloprim] 300 mg PO QDAY 04/27/19 04/27/19 04/26/19 History Calcitriol [Rocaltrol] 0.25 mcg PO 3XW 04/27/19 04/27/19 Unknown History Glimepiride [Amaryl] 2 mg PO QAM 04/27/19 04/27/19 04/26/19 History Active Meds: Active Medications Al Hydrox/Mg Hydrox/Simethicone (Alum-Mag Hydrox-Simeth [id number]/5ml) 30 ml PO Q6H PRN PRN Reason: Indigestion Last Admin: 04/28/19 03:55 Dose: 30 ml Documented by: Dextrose (D50w (25gm) Syringe) 50 ml IV Q30MIN PRN; Protocol PRN Reason: Hypoglycemia Furosemide (Lasix) 60 mg IV 0600,1800 MARTINEZ Insulin Human Lispro (Humalog) 0 unit SUB-Q Q6HR MARTINEZ; Protocol Last Admin: 04/28/19 13:21 Dose: 2 unit Documented by: Latanoprost (Latanoprost 0.005%) 1 drops OU QHS MARTINEZ Sodium Chloride (Sodium Chloride Flush Syringe 10 Ml) 10 ml IV BID MARTINEZ Last Admin: 04/28/19 12:02 Dose: 10 ml Documented by: Sodium Chloride (Sodium Chloride Flush Syringe 10 Ml) 10 ml IV PRN PRN PRN Reason: LINE FLUSH Review of Systems All systems: negative (as in HPI) Physical Examination Vital signs: Vital Signs Temp Pulse Resp BP Pulse Ox 98.2 F 42 L 24 130/51 93 04/27/19 12:53 04/27/19 12:53 04/27/19 12:53 04/27/19 12:53 04/27/19 12:53 Vitals reviewed. General appearance: Present: mild distress, obese - EENT Eyes: Present: PERRL ENT: hearing intact, clear oral mucosa - Neck Neck: Present: supple, normal ROM - Respiratory Respiratory effort: normal Respiratory: bilateral: CTA - Cardiovascular Heart Sounds: Present: S1 & S2. Absent: rub, click - Extremities Extremities: pulses symmetrical, No edema Peripheral Pulses: within normal limits Right groin transvenous pacemaker - Abdominal General gastrointestinal: Present: soft, non-tender, non-distended, normal bowel sounds Male genitourinary: Present: normal - Integumentary Integumentary: Present: clear, warm, dry - Musculoskeletal Musculoskeletal: gait normal, strength equal bilaterally - Psychiatric Psychiatric: appropriate mood/affect, intact judgment & insight - Neurologic Neurologic: CNII-XII intact, moves all extremities Results - Laboratory Findings CBC and BMP: 04/27/19 13:24 04/29/19 12:12 PT/INR, D-dimer PT 15.0 Sec. (12.2-14.9) H 04/27/19 13:24 INR 1.19 (0.87-1.13) H 04/27/19 13:24 Abnormal lab findings: Abnormal Labs 04/27/19 04/27/19 04/27/19 13:24 13:24 13:24 MCV 98 H MCH 33 H Lymph % (Auto) 12.8 L Seg Neutrophils % 78.0 H PT 15.0 H INR 1.19 H Carbon Dioxide 21 L BUN 32 H Creatinine 1.7 H Glucose 297 H POC Glucose AST 43 H ALT 61 H NT-Pro-B Natriuret Pep Albumin 3.6 L TSH 04/27/19 04/27/19 04/27/19 13:24 13:24 18:21 MCV MCH Lymph % (Auto) Seg Neutrophils % PT INR Carbon Dioxide BUN Creatinine Glucose POC Glucose 252 H AST ALT NT-Pro-B Natriuret Pep 3410 H Albumin TSH 4.790 H 04/28/19 04/28/19 04/28/19 06:39 12:08 12:59 MCV MCH Lymph % (Auto) Seg Neutrophils % PT INR Carbon Dioxide BUN 28 H Creatinine Glucose 212 H POC Glucose 118 H 183 H AST ALT NT-Pro-B Natriuret Pep Albumin TSH - Diagnostic Findings Chest x-ray: image reviewed Assessment and Plan Complete heart block s/p transvenous pacemaker History of COPD Chronic kidney disease Congestive heart failure Elevated transaminases Morbid obesity -Continue with ICU monitoring -Supplemental oxygen to keep O2 sats>90% -Chronic COPD medications, Bronchodilators -Plan for cardiac cath to evaluate for CAD -Avoid nephrotoxins, renally dose all medications -Heart failure measures, cardioprotective measures -Transthoracic echocardiogram -VTE prophylaxis -Chronic home medications -Weight loss and life style modifications -Monitor LFTs -Accuchecks with glycemic control, keep blood glucose <180mg/dL, avoid hypoglycemia Discussed with patient and updated him re care plan. Plan for cardiac cath and PPM possible tomorrow per Cardiology. Thank you for the consult. Will follow
[2019-04-28] MEDS ORDERED: BUMETANIDE 1 MG/4 ML INJ IV SCH (18:00)
[2019-04-28] MEDS ORDERED: FUROSEMIDE 40 MG/4 ML INJ IV SCH (18:00)
[2019-04-28] MEDS: FUROSEMIDE 100 MG/10 ML INJ IV SCH (18:48)
--- NOTE | 2019-04-28 19:33 | Progress Note ---
Assessment and Plan Assessment and plan: 78 YO Male with Obesity Hypoventilation Syndrome, HTN, DM, CHF presents to ED for evaluation. PT states that he was in his bathroom having a bowel movement when he experienced an acute onset of lightheadedness and subsequent loss of consciousness. Pt fell onto the floor and sustained an abrasion to his forehead. Pt collier not recall how long he was unconscious, and does not remember any additional details. EMS notified, and upon arrival the patient was found to be in distress and transported to [facility]. Pt seen and evaluated in ED and found to have Hear Block, with symptomatic bradycardia. Pt treated with atropine without resolution of symptoms. Pt treated with external pacing. Cardiology consulted in ED. Pt admitted to ICU with continuous telemetry monitoring. Pt family at bedside. Advanced care planning conducted. Pt and family acknowledge understanding and agreement with care plan. Pt acknowledges dypsnea on exertion, shortness of breath, decreased exercise tolerance, and leg edema. Pt denies f ever, chills, CP, NVD, Trauma, BRBPR, Productive Cough, or recent ill contacts. - Patient Problems (1) Heart block-complete Current Visit: No Status: Acute Plan to address problem: Continue IMCU CARE, Complete supine position stressed to patient and staff Cardiology input noted, Counselling provided again to patient about contrast induced nephropathy and he verbalized understadning Continue with External pacing, Atropine at bedside, Will need permanent pacemaker (2) CHF (congestive heart failure) Current Visit: No Status: Acute Qualifiers: Heart failure type: systolic Heart failure chronicity: acute on chronic Qualified Code(s): I50.23 - Acute on chronic systolic (congestive) heart failure Plan to address problem: Telemetry, Strict I/O, daily weight, echo, thyroid panel, magnesium level, cardiology consulted in ED, supplemental oxygen, Chest x ray, bnp (3) Symptomatic bradycardia Current Visit: No Status: Acute Plan to address problem: Telemetry, external pacing, atropine at bedside, supportive care. (4) KARINE (acute kidney injury) Current Visit: No Status: Acute Plan to address problem: IVF resuscitation therapy as tolerated, Nephrology consulted in ED. (5) HTN (hypertension) Current Visit: Yes Status: Acute Qualifiers: Hypertension type: essential hypertension Qualified Code(s): I10 - Essential (primary) hypertension Plan to address problem: Monitor bp q shift, supportive care, continue medical management (6) Diabetes Current Visit: Yes Status: Acute Plan to address problem: ADA diet, insulin, accu check, hypoglycemia protocol (7) DVT prophylaxis Current Visit: No Status: Acute Plan to address problem: SCD to BLE while in bed. History Interval history: Patient seen and examined, no new complaints, awaiting complete cardiac work up. No adverse event reported to me overnight Hospitalist Physical - Constitutional Vitals: Temp Pulse Resp BP Pulse Ox 98.1 F 74 20 123/79 95 04/28/19 14:00 04/28/19 18:00 04/28/19 18:00 04/28/19 18:00 04/28/19 18:00 General appearance: Present: mild distress, obese - EENT Eyes: Present: PERRL, EOM intact ENT: hearing intact, clear oral mucosa - Neck Neck: Present: supple, normal ROM - Respiratory Respiratory effort: normal Respiratory: bilateral: CTA - Cardiovascular Rhythm: regularly irregular Heart Sounds: Present: S1 & S2, diastolic murmur. Absent: systolic murmur - Extremities Extremities: no ischemia, pulses intact, pulses symmetrical, Full ROM Extremity abnormal: edema (trace) Peripheral Pulses: within normal limits - Abdominal General gastrointestinal: soft, non-tender, non-distended, normal bowel sounds - Integumentary Integumentary: Present: warm - Psychiatric Psychiatric: appropriate mood/affect, intact judgment & insight, memory intact, cooperative - Neurologic Neurologic: CNII-XII intact, moves all extremities - Allied Health Allied health notes reviewed: nursing Results - Labs CBC & Chem 7: 04/27/19 13:24 04/28/19 12:08 Labs: Laboratory Last Values WBC 9.6 K/mm3 (4.5-11.0) 04/27/19 13:24 RBC 4.46 M/mm3 (3.65-5.03) 04/27/19 13:24 Hgb 14.7 gm/dl (11.8-15.2) 04/27/19 13:24 Hct 43.8 % (35.5-45.6) 04/27/19 13:24 MCV 98 fl (84-94) H 04/27/19 13:24 MCH 33 pg (28-32) H 04/27/19 13:24 MCHC 34 % (32-34) 04/27/19 13:24 RDW 15.1 % (13.2-15.2) 04/27/19 13:24 Plt Count 140 K/mm3 (140-440) 04/27/19 13:24 Lymph % (Auto) 12.8 % (13.4-35.0) L 04/27/19 13:24 [place] % (Auto) 7.2 % (0.0-7.3) 04/27/19 13:24 Eos % (Auto) 1.7 % (0.0-4.3) 04/27/19 13:24 Baso % (Auto) 0.3 % (0.0-1.8) 04/27/19 13:24 Lymph # 1.2 K/mm3 (1.2-5.4) 04/27/19 13:24 [place] # 0.7 K/mm3 (0.0-0.8) 04/27/19 13:24 Eos # 0.2 K/mm3 (0.0-0.4) 04/27/19 13:24 Baso # 0.0 K/mm3 (0.0-0.1) 04/27/19 13:24 Seg Neutrophils % 78.0 % (40.0-70.0) H 04/27/19 13:24 Seg Neutrophils # 7.5 K/mm3 (1.8-7.7) 04/27/19 13:24 PT 15.0 Sec. (12.2-14.9) H 04/27/19 13:24 INR 1.19 (0.87-1.13) H 04/27/19 13:24 Sodium 140 mmol/L (137-145) 04/28/19 12:08 Potassium 4.5 mmol/L (3.6-5.0) 04/28/19 12:08 Chloride 102.9 mmol/L (98-107) 04/28/19 12:08 Carbon Dioxide 23 mmol/L (22-30) 04/28/19 12:08 Anion Gap 19 mmol/L 04/28/19 12:08 BUN 28 mg/dL (9-20) H 04/28/19 12:08 Creatinine 1.5 mg/dL (0.8-1.5) 04/28/19 12:08 Estimated GFR 46 ml/min 04/28/19 12:08 BUN/Creatinine Ratio 19 % 04/28/19 12:08 Glucose 212 mg/dL (75-100) H 04/28/19 12:08 POC Glucose 167 (70-105) H 04/28/19 18:15 Calcium 9.1 mg/dL (8.4-10.2) 04/28/19 12:08 Magnesium 2.10 mg/dL (1.7-2.3) 04/27/19 13:24 Total Bilirubin 0.70 mg/dL (0.1-1.2) 04/27/19 13:24 AST 43 units/L (5-40) H 04/27/19 13:24 ALT 61 units/L (7-56) H 04/27/19 13:24 Alkaline Phosphatase 81 units/L (35-129) 04/27/19 13:24 Troponin T < 0.010 ng/mL (0.00-0.029) 04/27/19 13:24 NT-Pro-B Natriuret Pep 3410 pg/mL (0-900) H 04/27/19 13:24 Total Protein 6.5 g/dL (6.3-8.2) 04/27/19 13:24 Albumin 3.6 g/dL (3.9-5) L 04/27/19 13:24 Albumin/Globulin Ratio 1.2 % 04/27/19 13:24 TSH 4.790 mlU/mL (0.270-4.200) H 04/27/19 13:24 Thyroxine (T4) 7.6 ug/dL (4.0-12.0) 04/27/19 13:24 Active Medications - Current Medications Current Medications: Generic Name Dose Route Start Last Admin Trade Name Freq PRN Reason Stop Dose Admin Al Hydrox/Mg Hydrox/Simethicone 30 ml 04/28/19 03:35 04/28/19 03:55 Alum-Mag Hydrox-Simeth 384-993-97pm/5ml PO 30 ml Q6H PRN Administration Indigestion Dextrose 50 ml 04/27/19 15:44 D50w (25gm) Syringe IV Q30MIN PRN Hypoglycemia Protocol Furosemide 60 mg 04/28/19 18:00 04/28/19 18:48 Lasix IV 60 mg 0600,1800 MARTINEZ Administration Insulin Human Lispro 0 unit 04/27/19 18:00 04/28/19 18:48 Humalog SUB-Q 2 unit Q6HR MARTINEZ Administration Protocol Latanoprost 1 drops 04/27/19 22:00 Latanoprost 0.005% OU QHS MARTINEZ Sodium Chloride 10 ml 04/27/19 22:00 04/28/19 12:02 Sodium Chloride Flush Syringe 10 Ml IV 10 ml BID MARTINEZ Administration Sodium Chloride 10 ml 04/27/19 14:10 Sodium Chloride Flush Syringe 10 Ml IV PRN PRN LINE FLUSH
[2019-04-29] MEDS: INSULIN LISPRO 100 UNIT/ML SUB-Q SCH ×4 (01:06→18:07)
[2019-04-29 05:40] LABS: INR 1.22 (0.87-1.13)
[2019-04-29] MEDS: LATANOPROST 0.005% OPHTH SOLN 2.5 ML OU SCH ×3 (05:57→22:25)
[2019-04-29] MEDS: FUROSEMIDE 100 MG/10 ML INJ IV SCH ×2 (06:17→18:08)
[2019-04-29] MEDS ORDERED: SODIUM CHLORIDE IRRI 1000 ML 1,000 ML, .VANCOMYCIN VIAL 1,000 MG IR ONE (08:20)
[2019-04-29] MEDS ORDERED: ASPIRIN 81 MG TAB CHEW PO ONE (09:22)
[2019-04-29] MEDS ORDERED: ASPIRIN 81 MG TAB CHEW ONE (09:26)
[2019-04-29] MEDS ORDERED: HEPARIN/NS 5000 UNIT/500ML 1,000 ML IR ONE (09:36)
[2019-04-29] MEDS ORDERED: SODIUM CHLORIDE 0.9% 500 ML 500 ML ONE (09:45)
--- NOTE | 2019-04-29 09:52 | XRay Report ---
CHEST 1 VIEW 04/29/2019 9:30 AM INDICATION / CLINICAL INFORMATION: pulmonary edema. COMPARISON: Chest x-ray 04/27/2019. FINDINGS: SUPPORT DEVICES: None. HEART / MEDIASTINUM: Stable mild cardiomegaly. LUNGS / PLEURA: Mildly improved pulmonary vascular congestion and interstitial edema. No pneumothorax . ADDITIONAL FINDINGS: No significant additional findings. IMPRESSION: 1. Mildly improved vascular congestion and interstitial edema compared with 04/27/2019. Signer Name: Navneet Iverson MD Signed: 04/29/2019 9:48 AM Workstation Name: [id number]
[2019-04-29] MEDS ORDERED: hydrALAZINE 20 MG/1 ML INJ IV PRN ×2 (10:00→15:55)
[2019-04-29] MEDS: MIDAZOLAM 2 MG/2 ML INJ ONE ×2 (10:08→10:29)
[2019-04-29] MEDS: fentaNYL 100 MCG/2 ML INJ ONE ×2 (10:08→10:29)
[2019-04-29] MEDS: NITROGLYCERIN SYRINGE 3 ML ONE ×2 (10:09→10:32)
[2019-04-29] MEDS: LIDOCAINE (2%) 20 MG/1 ML VIAL 20 ML MDV INFILTRATI ONE ×3 (10:09→10:31)
[2019-04-29] MEDS: VERAPAMIL 5 MG/2 ML INJ ONE ×2 (10:10→10:32)
[2019-04-29] MEDS: HEPARIN 10,000 UNITS/10 ML VIAL ONE ×2 (10:10→10:32)
--- NOTE | 2019-04-29 11:20 | Event Note ---
Date: 04/29/19 Cardiac cath via R radial, shows multivessel CAD. Total contrast 40cc. Refer to tertiary care center for further revasc and device therapy.
[2019-04-29] MEDS ORDERED: SODIUM CHLORIDE 0.9% 1000 ML 1,000 ML IV SCH (12:00)
[2019-04-29 12:06] LABS: Bilirubin,Urine NEG (Negative); Blood,Urine NEG (Negative); Color,Urine Straw (Yellow); Protein,Urine <15 mg/dL mg/dL (Negative); Urobilinogen,Urine < 2.0 mg/dL (<2.0)
[2019-04-29 12:21] LABS: Amphetamine Screen,Urine PRESUMPTIVE NEGATIVE; Benzodiazepines Screen,Urine PRESUMPTIVE NEGATIVE; Cannabinoid Screen,Urine PRESUMPTIVE NEGATIVE; Cocaine Screen,Urine PRESUMPTIVE NEGATIVE; Methadone Screen,Urine PRESUMPTIVE NEGATIVE; Opiate Screen,Urine PRESUMPTIVE NEGATIVE
[2019-04-29 12:33] LABS: WBC,Urine < 1.0 /HPF (0.0-6.0)
[2019-04-29 12:49] LABS: Calcium 8.9 mg/dL (8.4-10.2)
--- NOTE | 2019-04-29 13:39 | Cardiac Catherization Report ---
REASON FOR PROCEDURE: The patient is a 78-year-old man who presented to the hospital with acute congestive heart failure, pulmonary edema, and complete heart block. Emergently, he underwent temporary pacemaker placement and aggressive diuretic therapy for heart failure. An echocardiogram demonstrated severe left ventricular systolic dysfunction with ejection fraction of 25-30%. He is referred to the lab technologist today for a coronary angiography. He has chronic kidney disease with a baseline creatinine of 1.6-1.7. Risks and benefits of the procedure including a higher risk of contrast nephropathy were discussed with the patient and he accepts to proceed. PROCEDURES: 1. Left heart catheterization. 2. Selective left and right coronary angiography. 3. Sedation time, start 10:29 and end 10:38. DESCRIPTION OF PROCEDURE: The patient was prepped and draped in a sterile fashion after the informed consent. The right radial cath site was prepped and draped after a negative Paulo's test. The right radial artery was entered using a Seldinger technique followed by placement of a 6-[place] hydrophilic sheath. Routine radial cocktail was administered via the sheath. Selective left and right coronary angiography was performed using a #3.5 left Juaquin and a #4 right Juaquin. The catheters were then removed, sheath removed, and hemostasis achieved using a TR band. The patient was returned to the postprocedure unit in a stable condition. There were no complications. The total contrast used for the procedure was less than 40 mL. FINDINGS: HEMODYNAMICS: Ascending aortic pressure was 130/78. CORONARY ANGIOGRAPHY: The left main coronary artery contained mild luminal irregularities. Left anterior descending artery contained a mild diffuse atherosclerosis of its [id number] segment. There was an up to 50% stenosis of the mid segment at the origin of a large mid diagonal branch. Following this lesion, there appeared to be another focal hazy 50-70% stenosis of the mid LAD. The circumflex artery was notably occluded in its distal segment, leading to a large terminal obtuse marginal. This was a long area of total occlusion, with reconstitution by left to left collaterals. The right coronary artery was dominant. This vessel contained a long, complex, and ulcerated up to 85% stenosis of the mid segment. CONCLUSION: 1. Multivessel coronary artery disease as above. 2. Total contrast used, 40 mL. RECOMMENDATION: The patient's angiograms will be reviewed for options for a percutaneous or surgical revascularization. JOB# [id number] TIBURCIO/VITOR
--- NOTE | 2019-04-29 14:31 | Progress Note ---
Assessment and Plan Complete heart block s/p transvenous pacemaker s/p Cardiac Cath History of COPD Chronic kidney disease Congestive heart failure Elevated transaminases Morbid obesity Plan to transfer to tertiary center per Cardiolgy recommendations Continue all current care and close monitoring All other care as documented below -Continue with ICU monitoring -Supplemental oxygen to keep O2 sats>90% -Chronic COPD medications, Bronchodilators -Avoid nephrotoxins, renally dose all medications -Monitor renal function closley -Heart failure measures, cardioprotective measures -VTE prophylaxis -Chronic home medications -Weight loss and life style modifications -Continue to trend and monitor LFTs -Accuchecks with glycemic control, keep blood glucose <180mg/dL, avoid hypoglycemia Subjective Date of service: 04/29/19 Interval history: Patient is seen today for: Complete heart block s/p transvenous pacemaker;History of COPD;Morbid obesity Seen and examined at bedside; 24hour events reviewed; nursing and respiratory care staff consulted; no adverse overnight events reported to me; Denies any chest pain, no shortness of breath, no fevers or chills. s/p Angiography, Cards recommendation is transfer to tertiary center fro re-vas cularization and PPM placement. Vitals, labs, medications, chart reviewed Objective - Exam Narrative Exam: Vitals reviewed. General appearance: Present: mild distress, obese - EENT Eyes: Present: PERRL ENT: hearing intact, clear oral mucosa - Neck Neck: Present: supple, normal ROM - Respiratory Respiratory effort: normal Respiratory: bilateral: CTA - Cardiovascular Heart Sounds: Present: S1 & S2. Absent: rub, click - Extremities Extremities: pulses symmetrical, No edema Peripheral Pulses: within normal limits Right groin transvenous pacemaker - Abdominal General gastrointestinal: Present: soft, non-tender, non-distended, normal bowel sounds Male genitourinary: Present: normal - Integumentary Integumentary: Present: clear, warm, dry - Musculoskeletal Musculoskeletal: gait normal, strength equal bilaterally - Psychiatric Psychiatric: appropriate mood/affect, intact judgment & insight - Neurologic Neurologic: CNII-XII intact, moves all extremities Vital Signs - 12hr 04/29/19 04/29/19 04/29/19 03:00 03:56 04:00 Temperature 98.7 F Pulse Rate 67 67 Pulse Rate [ From Monitor] Respiratory 17 20 Rate Blood Pressure 147/85 124/56 O2 Sat by Pulse 92 92 Oximetry 04/29/19 04/29/19 04/29/19 05:00 06:00 07:00 Temperature Pulse Rate 68 67 68 Pulse Rate [ From Monitor] Respiratory 17 17 17 Rate Blood Pressure 156/92 157/76 130/77 O2 Sat by Pulse 94 93 92 Oximetry 04/29/19 04/29/19 04/29/19 08:00 11:18 12:00 Temperature 98.4 F 97.5 F L Pulse Rate 69 68 Pulse Rate [ 69 From Monitor] Respiratory 14 16 Rate Blood Pressure 130/77 141/78 O2 Sat by Pulse 94 93 93 Oximetry CBC and BMP: 04/27/19 13:24 04/30/19 04:54 ABG, PT/INR, D-dimer: PT/INR, D-dimer PT 15.3 Sec. (12.2-14.9) H 04/29/19 04:32 INR 1.22 (0.87-1.13) H 04/29/19 04:32 Abnormal lab findings: Abnormal Labs 04/27/19 04/27/19 04/27/19 13:24 13:24 13:24 MCV 98 H MCH 33 H Lymph % (Auto) 12.8 L Seg Neutrophils % 78.0 H PT 15.0 H INR 1.19 H Carbon Dioxide 21 L BUN 32 H Creatinine 1.7 H Glucose 297 H POC Glucose AST 43 H ALT 61 H NT-Pro-B Natriuret Pep Albumin 3.6 L TSH 04/27/19 04/27/19 04/27/19 13:24 13:24 18:21 MCV MCH Lymph % (Auto) Seg Neutrophils % PT INR Carbon Dioxide BUN Creatinine Glucose POC Glucose 252 H AST ALT NT-Pro-B Natriuret Pep 3410 H Albumin TSH 4.790 H 04/28/19 04/28/19 04/28/19 06:39 12:08 12:59 MCV MCH Lymph % (Auto) Seg Neutrophils % PT INR Carbon Dioxide BUN 28 H Creatinine Glucose 212 H POC Glucose 118 H 183 H AST ALT NT-Pro-B Natriuret Pep Albumin TSH 04/28/19 04/29/19 04/29/19 18:15 00:12 04:32 MCV MCH Lymph % (Auto) Seg Neutrophils % PT 15.3 H INR 1.22 H Carbon Dioxide BUN Creatinine Glucose POC Glucose 167 H 157 H AST ALT NT-Pro-B Natriuret Pep Albumin TSH 04/29/19 04/29/19 04/29/19 04:32 05:43 12:12 MCV MCH Lymph % (Auto) Seg Neutrophils % PT INR Carbon Dioxide BUN 28 H 26 H Creatinine Glucose 197 H 169 H POC Glucose 166 H AST ALT NT-Pro-B Natriuret Pep Albumin TSH 04/29/19 12:37 MCV MCH Lymph % (Auto) Seg Neutrophils % PT INR Carbon Dioxide BUN Creatinine Glucose POC Glucose 159 H AST ALT NT-Pro-B Natriuret Pep Albumin TSH
[2019-04-29] MEDS ORDERED: ALBUTEROL 2.5 MG/3 ML NEBU IH PRN (15:56)
--- NOTE | 2019-04-29 15:56 | Progress Note ---
Assessment and Plan Assessment and plan: Complete heart block -s/p transvenous pacemaker -coreg discontinued Acute on chronic systolic HF with EF of 25-30% -on IV diuretics -not on BB due to bradycardia -not on ACEI due to KARINE Multivessel CAD per [facility] -Per cardiology, plan is refer to tertiary care center for further revasc and device therapy. KARINE -improved, will monitor History of COPD -stable -PRN neb tx Transaminitis -will monitor HTN -stable -on PRN hydralazine Disposition per cardiology History Interval history: pt has no new complaints. He denies chest pain or sob Hospitalist Physical - Constitutional Vitals: Temp Pulse Resp BP Pulse Ox 97.5 F L 68 16 141/78 93 04/29/19 12:00 04/29/19 12:00 04/29/19 12:00 04/29/19 12:00 04/29/19 12:00 General appearance: Present: no acute distress, obese - EENT Eyes: Present: PERRL, EOM intact ENT: hearing intact, clear oral mucosa - Neck Neck: Present: supple - Respiratory Respiratory effort: normal Respiratory: bilateral: CTA - Cardiovascular Rhythm: regular Heart Sounds: Present: S1 & S2 - Extremities Extremities: No edema - Abdominal General gastrointestinal: soft, non-tender, normal bowel sounds - Integumentary Integumentary: Present: warm, dry - Psychiatric Psychiatric: appropriate mood/affect - Neurologic Neurologic: CNII-XII intact Results - Labs CBC & Chem 7: 04/27/19 13:24 04/29/19 12:12 Labs: Laboratory Last Values WBC 9.6 K/mm3 (4.5-11.0) 04/27/19 13:24 RBC 4.46 M/mm3 (3.65-5.03) 04/27/19 13:24 Hgb 14.7 gm/dl (11.8-15.2) 04/27/19 13:24 Hct 43.8 % (35.5-45.6) 04/27/19 13:24 MCV 98 fl (84-94) H 04/27/19 13:24 MCH 33 pg (28-32) H 04/27/19 13:24 MCHC 34 % (32-34) 04/27/19 13:24 RDW 15.1 % (13.2-15.2) 04/27/19 13:24 Plt Count 140 K/mm3 (140-440) 04/27/19 13:24 Lymph % (Auto) 12.8 % (13.4-35.0) L 04/27/19 13:24 [place] % (Auto) 7.2 % (0.0-7.3) 04/27/19 13:24 Eos % (Auto) 1.7 % (0.0-4.3) 04/27/19 13:24 Baso % (Auto) 0.3 % (0.0-1.8) 04/27/19 13:24 Lymph # 1.2 K/mm3 (1.2-5.4) 04/27/19 13:24 [place] # 0.7 K/mm3 (0.0-0.8) 04/27/19 13:24 Eos # 0.2 K/mm3 (0.0-0.4) 04/27/19 13:24 Baso # 0.0 K/mm3 (0.0-0.1) 04/27/19 13:24 Seg Neutrophils % 78.0 % (40.0-70.0) H 04/27/19 13:24 Seg Neutrophils # 7.5 K/mm3 (1.8-7.7) 04/27/19 13:24 PT 15.3 Sec. (12.2-14.9) H 04/29/19 04:32 INR 1.22 (0.87-1.13) H 04/29/19 04:32 Sodium 141 mmol/L (137-145) 04/29/19 12:12 Potassium 4.4 mmol/L (3.6-5.0) 04/29/19 12:12 Chloride 100.7 mmol/L (98-107) 04/29/19 12:12 Carbon Dioxide 25 mmol/L (22-30) 04/29/19 12:12 Anion Gap 20 mmol/L 04/29/19 12:12 BUN 26 mg/dL (9-20) H 04/29/19 12:12 Creatinine 1.4 mg/dL (0.8-1.5) 04/29/19 12:12 Estimated GFR 49 ml/min 04/29/19 12:12 BUN/Creatinine Ratio 19 % 04/29/19 12:12 Glucose 169 mg/dL (75-100) H 04/29/19 12:12 POC Glucose 159 (70-105) H 04/29/19 12:37 Calcium 8.9 mg/dL (8.4-10.2) 04/29/19 12:12 Magnesium 2.10 mg/dL (1.7-2.3) 04/27/19 13:24 Total Bilirubin 0.70 mg/dL (0.1-1.2) 04/27/19 13:24 AST 43 units/L (5-40) H 04/27/19 13:24 ALT 61 units/L (7-56) H 04/27/19 13:24 Alkaline Phosphatase 81 units/L (35-129) 04/27/19 13:24 Troponin T < 0.010 ng/mL (0.00-0.029) 04/27/19 13:24 NT-Pro-B Natriuret Pep 3410 pg/mL (0-900) H 04/27/19 13:24 Total Protein 6.5 g/dL (6.3-8.2) 04/27/19 13:24 Albumin 3.6 g/dL (3.9-5) L 04/27/19 13:24 Albumin/Globulin Ratio 1.2 % 04/27/19 13:24 TSH 4.790 mlU/mL (0.270-4.200) H 04/27/19 13:24 Thyroxine (T4) 7.6 ug/dL (4.0-12.0) 04/27/19 13:24 Urine Color Straw (Yellow) 04/29/19 11:33 Urine Turbidity Clear (Clear) 04/29/19 11:33 Urine pH 6.0 (5.0-7.0) 04/29/19 11:33 Ur Specific [place] 1.008 (1.003-1.030) 04/29/19 11:33 Urine Protein <15 mg/dl mg/dL (Negative) 04/29/19 11:33 Urine Glucose (UA) Neg mg/dL (Negative) 04/29/19 11:33 Urine Ketones Neg mg/dL (Negative) 04/29/19 11:33 Urine Blood Neg (Negative) 04/29/19 11:33 Urine Nitrite Neg (Negative) 04/29/19 11:33 Urine Bilirubin Neg (Negative) 04/29/19 11:33 Urine Urobilinogen < 2.0 mg/dL (<2.0) 04/29/19 11:33 Ur Leukocyte Esterase Neg (Negative) 04/29/19 11:33 Urine WBC (Auto) < 1.0 /HPF (0.0-6.0) 04/29/19 11:33 Urine RBC (Auto) 2.0 /HPF (0.0-6.0) 04/29/19 11:33 U Epithel Cells (Auto) < 1.0 /HPF (0-13.0) 04/29/19 11:33 Urine Opiates Screen Presumptive negative 04/29/19 11:33 Urine Methadone Screen Presumptive negative 04/29/19 11:33 Ur Barbiturates Screen Presumptive negative 04/29/19 11:33 Ur Phencyclidine Scrn Presumptive negative 04/29/19 11:33 Ur Amphetamines Screen Presumptive negative 04/29/19 11:33 U Benzodiazepines Scrn Presumptive negative 04/29/19 11:33 Urine Cocaine Screen Presumptive negative 04/29/19 11:33 U Marijuana (THC) Screen Presumptive negative 04/29/19 11:33 Drugs of Abuse Note Disclamer 04/29/19 11:33 Active Medications - Current Medications Current Medications: Generic Name Dose Route Start Last Admin Trade Name Freq PRN Reason Stop Dose Admin Al Hydrox/Mg Hydrox/Simethicone 30 ml 04/28/19 03:35 04/28/19 03:55 Alum-Mag Hydrox-Simeth 927-031-95du/5ml PO 30 ml Q6H PRN Administration Indigestion Dextrose 50 ml 04/27/19 15:44 D50w (25gm) Syringe IV Q30MIN PRN Hypoglycemia Protocol Furosemide 60 mg 04/28/19 18:00 04/29/19 06:17 Lasix IV 60 mg 0600,1800 MARTINEZ Administration Hydralazine HCl 20 mg 04/29/19 10:00 Apresoline IV Q4HR PRN Blood Pressure Sodium Chloride 1,000 mls @ 75 mls/hr 04/29/19 12:00 04/29/19 12:40 Nacl 0.9% 1000 Ml IV 04/29/19 17:59 75 mls/hr DIRECT MARTINEZ Administration Insulin Human Lispro 0 unit 04/27/19 18:00 04/29/19 12:40 Humalog SUB-Q 2 unit Q6HR MARTINEZ Administration Protocol Latanoprost 1 drops 04/27/19 22:00 04/29/19 05:57 Latanoprost 0.005% OU Not Given QHS MARTINEZ Sodium Chloride 10 ml 04/27/19 22:00 04/29/19 01:07 Sodium Chloride Flush Syringe 10 Ml IV 10 ml BID MARTINEZ Administration Sodium Chloride 10 ml 04/27/19 14:10 Sodium Chloride Flush Syringe 10 Ml IV PRN PRN LINE FLUSH
--- NOTE | 2019-04-29 17:32 | Progress Note ---
Assessment and Plan - Patient Problems (1) Chronic kidney disease, stage III (moderate) Current Visit: Yes Status: Acute Plan to address problem: Chronic kidney disease stage III creatinine in 2015 was 2.11 Current creatinine is 1.4 Chest x-ray with pulmonary congestion would recommend Lasix 40mg bid diuretics was changed by cardiology avoid nephrotoxins (2) CHF (congestive heart failure) Current Visit: Yes Status: Acute Plan to address problem: Congestive heart failure Obtain echocardiogram Chest x-ray revealed With bilateral right greater than left basilar opacities consistent with pulmonary congestion Received 2 mg of Bumex now then continue Bumex 1 mg IV twice a day (3) Symptomatic bradycardia Current Visit: Yes Status: Acute Plan to address problem: Symptomatic bradycardia has received external pacing (4) Metabolic acidosis Current Visit: Yes Status: Acute Plan to address problem: Metabolic acidosis Due to chronic kidney disease should improve with diuresis Subjective Interval history: 78-year-old gentleman with a significant medical history of hypertension, congestive heart failure, chronic kidney disease. Admitted with syncope while using the bathroom. He was also found to have symptomatic bradycardia nephrology consulted He reports some cough with some persistent phlegm also complains of subjective fevers Denies sick contacts he has associated orthopnea and PND as well as lower extre mity edema He was admitted to the ICU and was started on external pacing for his bradycardia he does report history of chronic kidney disease Dr. Ibanez creatinine in 2014 was 2.1 patient seen today, doing well , being transferred to [facility] Objective - Vital Signs Vital signs: Vital Signs - 12hr 04/29/19 04/29/19 04/29/19 06:00 07:00 08:00 Temperature 98.4 F Pulse Rate 67 68 69 Pulse Rate [ 69 From Monitor] Respiratory 17 17 14 Rate Blood Pressure 157/76 130/77 130/77 O2 Sat by Pulse 93 92 94 Oximetry 04/29/19 04/29/19 04/29/19 11:18 12:00 13:00 Temperature 97.5 F L Pulse Rate 68 67 Pulse Rate [ 68 From Monitor] Respiratory 16 17 Rate Blood Pressure 141/78 155/91 O2 Sat by Pulse 93 93 94 Oximetry 04/29/19 04/29/19 04/29/19 14:01 15:01 16:00 Temperature 98.7 F Pulse Rate 67 67 Pulse Rate [ 69 From Monitor] Respiratory 10 L 20 14 Rate Blood Pressure 109/79 131/95 O2 Sat by Pulse 96 95 92 Oximetry 04/29/19 16:01 Temperature Pulse Rate 69 Pulse Rate [ From Monitor] Respiratory 14 Rate Blood Pressure 118/79 O2 Sat by Pulse 92 Oximetry - General Appearance General appearance: well-developed, well-nourished EENT: ATNC, PERRL Neck: no JVD Respiratory: Present: Clear to Ascultation Cardiology: regular, S1S2 Gastrointestinal: normal, normoactive bowel sounds Integumentary: no rash Neurologic: alert and oriented x3, CN 3-12 intact Musculoskeletal: other (no edema) Psychiatric: mood/affect appropriate, cooperative - Lab 04/27/19 13:24 04/29/19 12:12 Most recent lab results Calcium 8.9 mg/dL (8.4-10.2) 04/29/19 12:12 Magnesium 2.10 mg/dL (1.7-2.3) 04/27/19 13:24 - Imaging Chest x-ray: image reviewed (cxr reviewed with pulmonary edema.) Medications & Allergies - Medications Allergies/Adverse Reactions: Allergies No Known Allergies Allergy (Unverified 02/14/15 14:25) Home Medications: Home Medications Medication Instructions Recorded Confirmed Last Taken Type Furosemide [Lasix TAB] 40 mg PO QDAY 02/14/15 04/27/19 04/26/19 History Simvastatin [Zocor TAB] 40 mg PO QHS 02/14/15 04/27/19 04/26/19 History carvediloL [Coreg] 6.25 mg PO BID 02/14/15 04/27/19 04/26/19 History Allopurinol [Zyloprim] 300 mg PO QDAY 04/27/19 04/27/19 04/26/19 History Calcitriol [Rocaltrol] 0.25 mcg PO 3XW 04/27/19 04/27/19 Unknown History Glimepiride [Amaryl] 2 mg PO QAM 04/27/19 04/27/19 04/26/19 History Active Medications: Generic Name Dose Route Start Last Admin Trade Name Freq PRN Reason Stop Dose Admin Al Hydrox/Mg Hydrox/Simethicone 30 ml 04/28/19 03:35 04/28/19 03:55 Alum-Mag Hydrox-Simeth 984-354-70ka/5ml PO 30 ml Q6H PRN Administration Indigestion Albuterol 2.5 mg 04/29/19 15:56 Proventil IH Q4HRT PRN Shortness Of Breath Dextrose 50 ml 04/27/19 15:44 D50w (25gm) Syringe IV Q30MIN PRN Hypoglycemia Protocol Furosemide 60 mg 04/28/19 18:00 04/29/19 06:17 Lasix IV 60 mg 0600,1800 MARTINEZ Administration Hydralazine HCl 10 mg 04/29/19 15:55 Apresoline IV Q4HR PRN HTN SBP>170 Sodium Chloride 1,000 mls @ 75 mls/hr 04/29/19 12:00 04/29/19 12:40 Nacl 0.9% 1000 Ml IV 04/29/19 17:59 75 mls/hr DIRECT MARTINEZ Administration Insulin Human Lispro 0 unit 04/27/19 18:00 04/29/19 12:40 Humalog SUB-Q 2 unit Q6HR MARTINEZ Administration Protocol Latanoprost 1 drops 04/27/19 22:00 04/29/19 05:57 Latanoprost 0.005% OU Not Given QHS MARTINEZ Sodium Chloride 10 ml 04/27/19 22:00 04/29/19 01:07 Sodium Chloride Flush Syringe 10 Ml IV 10 ml BID MARTINEZ Administration Sodium Chloride 10 ml 04/27/19 14:10 Sodium Chloride Flush Syringe 10 Ml IV PRN PRN LINE FLUSH
[2019-04-30] MEDS: INSULIN LISPRO 100 UNIT/ML SUB-Q SCH ×4 (00:14→18:21)
[2019-04-30] MEDS: FUROSEMIDE 100 MG/10 ML INJ IV SCH ×2 (05:25→18:20)
[2019-04-30 05:29] LABS: Albumin 3.4 g/dL (3.9-5); Calcium 8.9 mg/dL (8.4-10.2)
--- NOTE | 2019-04-30 12:17 | Progress Note ---
Assessment and Plan Assessment and plan: Complete heart block -s/p transvenous pacemaker -coreg discontinued Acute on chronic systolic HF with EF of 25-30% -on IV diuretics -not on BB due to bradycardia -not on ACEI due to CKD Multivessel CAD per [facility] -Per cardiology, plan is refer pt to tertiary care center for further revasc and device therapy. CKD stage 3, KARINE ruled out -Patient's baseline creatinine level was 2.1 in 2015, currently 1.2 -Nephrology following History of COPD -stable -cont PRN neb tx Transaminitis -Improved HTN -stable -cont PRN hydralazine Disposition per cardiology History Interval history: pt has no new complaints. He denies chest pain or sob Hospitalist Physical - Constitutional Vitals: Temp Pulse Resp BP Pulse Ox 98.2 F 67 12 143/68 94 04/30/19 08:00 04/30/19 11:00 04/30/19 11:00 04/30/19 11:00 04/30/19 11:00 General appearance: Present: no acute distress, obese - EENT Eyes: Present: PERRL, EOM intact ENT: hearing intact, clear oral mucosa - Neck Neck: Present: supple - Respiratory Respiratory effort: normal Respiratory: bilateral: CTA - Cardiovascular Rhythm: regular Heart Sounds: Present: S1 & S2 - Extremities Extremities: No edema - Abdominal General gastrointestinal: soft, non-tender, normal bowel sounds - Integumentary Integumentary: Present: warm, dry - Psychiatric Psychiatric: appropriate mood/affect - Neurologic Neurologic: CNII-XII intact Results - Labs CBC & Chem 7: 04/27/19 13:24 04/30/19 10:35 Labs: Laboratory Last Values WBC 9.6 K/mm3 (4.5-11.0) 04/27/19 13:24 RBC 4.46 M/mm3 (3.65-5.03) 04/27/19 13:24 Hgb 14.7 gm/dl (11.8-15.2) 04/27/19 13:24 Hct 43.8 % (35.5-45.6) 04/27/19 13:24 MCV 98 fl (84-94) H 04/27/19 13:24 MCH 33 pg (28-32) H 04/27/19 13:24 MCHC 34 % (32-34) 04/27/19 13:24 RDW 15.1 % (13.2-15.2) 04/27/19 13:24 Plt Count 140 K/mm3 (140-440) 04/27/19 13:24 Lymph % (Auto) 12.8 % (13.4-35.0) L 04/27/19 13:24 [place] % (Auto) 7.2 % (0.0-7.3) 04/27/19 13:24 Eos % (Auto) 1.7 % (0.0-4.3) 04/27/19 13:24 Baso % (Auto) 0.3 % (0.0-1.8) 04/27/19 13:24 Lymph # 1.2 K/mm3 (1.2-5.4) 04/27/19 13:24 [place] # 0.7 K/mm3 (0.0-0.8) 04/27/19 13:24 Eos # 0.2 K/mm3 (0.0-0.4) 04/27/19 13:24 Baso # 0.0 K/mm3 (0.0-0.1) 04/27/19 13:24 Seg Neutrophils % 78.0 % (40.0-70.0) H 04/27/19 13:24 Seg Neutrophils # 7.5 K/mm3 (1.8-7.7) 04/27/19 13:24 PT 15.3 Sec. (12.2-14.9) H 04/29/19 04:32 INR 1.22 (0.87-1.13) H 04/29/19 04:32 Sodium 141 mmol/L (137-145) 04/30/19 10:35 Potassium 3.5 mmol/L (3.6-5.0) L 04/30/19 10:35 Chloride 98.3 mmol/L (98-107) 04/30/19 10:35 Carbon Dioxide 26 mmol/L (22-30) 04/30/19 10:35 Anion Gap 20 mmol/L 04/30/19 10:35 BUN 22 mg/dL (9-20) H 04/30/19 10:35 Creatinine 1.2 mg/dL (0.8-1.5) 04/30/19 10:35 Estimated GFR 59 ml/min 04/30/19 10:35 BUN/Creatinine Ratio 18 % 04/30/19 10:35 Glucose 247 mg/dL (75-100) H 04/30/19 10:35 POC Glucose 135 (70-105) H 04/30/19 06:29 Calcium 9.0 mg/dL (8.4-10.2) 04/30/19 10:35 Magnesium 2.10 mg/dL (1.7-2.3) 04/27/19 13:24 Total Bilirubin 0.70 mg/dL (0.1-1.2) 04/30/19 04:54 AST 20 units/L (5-40) 04/30/19 04:54 ALT 30 units/L (7-56) 04/30/19 04:54 Alkaline Phosphatase 67 units/L (35-129) 04/30/19 04:54 Troponin T < 0.010 ng/mL (0.00-0.029) 04/27/19 13:24 NT-Pro-B Natriuret Pep 3410 pg/mL (0-900) H 04/27/19 13:24 Total Protein 6.3 g/dL (6.3-8.2) 04/30/19 04:54 Albumin 3.4 g/dL (3.9-5) L 04/30/19 04:54 Albumin/Globulin Ratio 1.2 % 04/30/19 04:54 TSH 4.790 mlU/mL (0.270-4.200) H 04/27/19 13:24 Thyroxine (T4) 7.6 ug/dL (4.0-12.0) 04/27/19 13:24 Urine Color Straw (Yellow) 04/29/19 11:33 Urine Turbidity Clear (Clear) 04/29/19 11:33 Urine pH 6.0 (5.0-7.0) 04/29/19 11:33 Ur Specific [place] 1.008 (1.003-1.030) 04/29/19 11:33 Urine Protein <15 mg/dl mg/dL (Negative) 04/29/19 11:33 Urine Glucose (UA) Neg mg/dL (Negative) 04/29/19 11:33 Urine Ketones Neg mg/dL (Negative) 04/29/19 11:33 Urine Blood Neg (Negative) 04/29/19 11:33 Urine Nitrite Neg (Negative) 04/29/19 11:33 Urine Bilirubin Neg (Negative) 04/29/19 11:33 Urine Urobilinogen < 2.0 mg/dL (<2.0) 04/29/19 11:33 Ur Leukocyte Esterase Neg (Negative) 04/29/19 11:33 Urine WBC (Auto) < 1.0 /HPF (0.0-6.0) 04/29/19 11:33 Urine RBC (Auto) 2.0 /HPF (0.0-6.0) 04/29/19 11:33 U Epithel Cells (Auto) < 1.0 /HPF (0-13.0) 04/29/19 11:33 Urine Opiates Screen Presumptive negative 04/29/19 11:33 Urine Methadone Screen Presumptive negative 04/29/19 11:33 Ur Barbiturates Screen Presumptive negative 04/29/19 11:33 Ur Phencyclidine Scrn Presumptive negative 04/29/19 11:33 Ur Amphetamines Screen Presumptive negative 04/29/19 11:33 U Benzodiazepines Scrn Presumptive negative 04/29/19 11:33 Urine Cocaine Screen Presumptive negative 04/29/19 11:33 U Marijuana (THC) Screen Presumptive negative 04/29/19 11:33 Drugs of Abuse Note Disclamer 04/29/19 11:33 Active Medications - Current Medications Current Medications: Generic Name Dose Route Start Last Admin Trade Name Freq PRN Reason Stop Dose Admin Al Hydrox/Mg Hydrox/Simethicone 30 ml 04/28/19 03:35 04/28/19 03:55 Alum-Mag Hydrox-Simeth 047-197-09py/5ml PO 30 ml Q6H PRN Administration Indigestion Albuterol 2.5 mg 04/29/19 15:56 Proventil IH Q4HRT PRN Shortness Of Breath Dextrose 50 ml 04/27/19 15:44 D50w (25gm) Syringe IV Q30MIN PRN Hypoglycemia Protocol Furosemide 60 mg 04/28/19 18:00 04/30/19 05:25 Lasix IV 60 mg 0600,1800 MARTINEZ Administration Hydralazine HCl 10 mg 04/29/19 15:55 Apresoline IV Q4HR PRN HTN SBP>170 Insulin Human Lispro 0 unit 04/27/19 18:00 04/30/19 06:54 Humalog SUB-Q Not Given Q6HR MARTINEZ Protocol Latanoprost 1 drops 04/27/19 22:00 04/29/19 22:25 Latanoprost 0.005% OU 1 drops QHS MARTINEZ Administration Sodium Chloride 10 ml 04/27/19 22:00 04/30/19 09:48 Sodium Chloride Flush Syringe 10 Ml IV 10 ml BID MARTINEZ Administration Sodium Chloride 10 ml 04/27/19 14:10 Sodium Chloride Flush Syringe 10 Ml IV PRN PRN LINE FLUSH
--- NOTE | 2019-04-30 13:14 | Progress Note ---
Assessment and Plan Complete heart block (s/p transvenous pacemaker s/p Cardiac Cath) History of COPD Chronic kidney disease Congestive heart failure Elevated transaminases Morbid obesity - continue Supplemental oxygen to keep O2 sats>90% - Chronic COPD medications, Bronchodilators - Avoid nephrotoxins, renally dose all medications - Monitor renal function closley - Heart failure measures, cardioprotective measures - VTE prophylaxis - Chronic home medications - Weight loss and life style modifications - Continue to trend and monitor LFTs - Accuchecks with glycemic control, keep blood glucose <180mg/dL, avoid hypoglycemia Subjective Date of service: 04/30/19 Principal diagnosis: Complete heart block s/p transvenous pacemaker; COPD; Morbid obesity Interval history: Patient is seen today for: Complete heart block s/p transvenous pacemaker; COPD; Morbid obesity Seen and examined at bedside; 24hour events reviewed; nursing and respiratory care staff consulted; no adverse overnight events reported to me; resting peacefully in bed; No N/V/F/C; no chest pains or palpitations Objective Vital Signs - 12hr 04/30/19 04/30/19 04/30/19 02:00 03:00 04:00 Temperature 97.9 F Pulse Rate 68 69 69 Pulse Rate [ 69 From Monitor] Respiratory 14 13 15 Rate Blood Pressure 134/64 128/67 128/67 O2 Sat by Pulse 94 96 96 Oximetry 04/30/19 04/30/19 04/30/19 05:00 06:00 07:00 Temperature Pulse Rate 70 71 73 Pulse Rate [ From Monitor] Respiratory 14 16 18 Rate Blood Pressure 127/74 123/70 132/72 O2 Sat by Pulse 95 97 95 Oximetry 04/30/19 04/30/19 04/30/19 08:00 09:00 10:00 Temperature 98.2 F Pulse Rate 69 73 68 Pulse Rate [ 71 From Monitor] Respiratory 19 19 15 Rate Blood Pressure 132/72 114/75 141/64 O2 Sat by Pulse 96 96 94 Oximetry 04/30/19 04/30/19 11:00 12:00 Temperature 98.4 F Pulse Rate 67 Pulse Rate [ From Monitor] Respiratory 12 Rate Blood Pressure 143/68 O2 Sat by Pulse 94 Oximetry Constitutional: no acute distress, alert Eyes: non-icteric ENT: oropharynx moist Neck: supple, no lymphadenopathy, other (large neck circumference) Effort: mildly labored Ascultation: Bilateral: clear, diminished breath sounds Percussion: Bilateral: not dull Cardiovascular: regular rate and rhythm Gastrointestinal: normoactive bowel sounds, non-tender, non-distended Integumentary: normal Extremities: no cyanosis, pulses normal, no ischemia or petechiae Neurologic: normal mental status, pupils equal and round, CN II-XII normal Psychiatric: mood appropriate, affect normal CBC and BMP: 04/27/19 13:24 04/30/19 10:35 ABG, PT/INR, D-dimer: PT/INR, D-dimer PT 15.3 Sec. (12.2-14.9) H 04/29/19 04:32 INR 1.22 (0.87-1.13) H 04/29/19 04:32 Abnormal lab findings: Abnormal Labs 04/27/19 04/27/19 04/27/19 13:24 13:24 13:24 MCV 98 H MCH 33 H Lymph % (Auto) 12.8 L Seg Neutrophils % 78.0 H PT 15.0 H INR 1.19 H Potassium Carbon Dioxide 21 L BUN 32 H Creatinine 1.7 H Glucose 297 H POC Glucose AST 43 H ALT 61 H NT-Pro-B Natriuret Pep Albumin 3.6 L TSH 04/27/19 04/27/19 04/27/19 13:24 13:24 18:21 MCV MCH Lymph % (Auto) Seg Neutrophils % PT INR Potassium Carbon Dioxide BUN Creatinine Glucose POC Glucose 252 H AST ALT NT-Pro-B Natriuret Pep 3410 H Albumin TSH 4.790 H 04/28/19 04/28/19 04/28/19 06:39 12:08 12:59 MCV MCH Lymph % (Auto) Seg Neutrophils % PT INR Potassium Carbon Dioxide BUN 28 H Creatinine Glucose 212 H POC Glucose 118 H 183 H AST ALT NT-Pro-B Natriuret Pep Albumin TSH 04/28/19 04/29/19 04/29/19 18:15 00:12 04:32 MCV MCH Lymph % (Auto) Seg Neutrophils % PT 15.3 H INR 1.22 H Potassium Carbon Dioxide BUN Creatinine Glucose POC Glucose 167 H 157 H AST ALT NT-Pro-B Natriuret Pep Albumin TSH 04/29/19 04/29/19 04/29/19 04:32 05:43 12:12 MCV MCH Lymph % (Auto) Seg Neutrophils % PT INR Potassium Carbon Dioxide BUN 28 H 26 H Creatinine Glucose 197 H 169 H POC Glucose 166 H AST ALT NT-Pro-B Natriuret Pep Albumin TSH 04/29/19 04/29/19 04/29/19 12:37 18:00 23:55 MCV MCH Lymph % (Auto) Seg Neutrophils % PT INR Potassium Carbon Dioxide BUN Creatinine Glucose POC Glucose 159 H 204 H 150 H AST ALT NT-Pro-B Natriuret Pep Albumin TSH 04/30/19 04/30/19 04/30/19 04:54 06:29 10:35 MCV MCH Lymph % (Auto) Seg Neutrophils % PT INR Potassium 3.5 L Carbon Dioxide BUN 21 H 22 H Creatinine Glucose 140 H 247 H POC Glucose 135 H AST ALT NT-Pro-B Natriuret Pep Albumin 3.4 L TSH Chest x-ray: image reviewed Allied health notes reviewed: nursing
--- NOTE | 2019-04-30 13:15 | Progress Note ---
<SUSSY WEINER - Last Filed: 04/30/19 13:10> Assessment and Plan Complete heart block s/p transvenous pacemaker coreg discontinued Chronic kidney disease Congestive heart failure History of COPD Elevated transaminases LHC showed multivessel CAD. 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 Ejection fraction of 25-30%. Awaits transfer to tertiary care center for further revascularization and device therapy. Subjective Date of service: 04/30/19 Interval history: Awaits transfer to tertiary center. Transvenous pacemaker is in place. Patient reports his breathing is better. He denies chest pain. Creatinine at 1.2 today 1 day post cardiac cath. Objective Vital Signs Temp Pulse Pulse Resp BP Pulse Ox 04/30/19 12:00 98.4 F 04/30/19 11:00 67 12 143/68 94 04/30/19 10:00 68 15 141/64 94 04/30/19 09:00 73 19 114/75 96 04/30/19 08:00 98.2 F 69 71 19 132/72 96 04/30/19 07:00 73 18 132/72 95 04/30/19 06:00 71 16 123/70 97 04/30/19 05:00 70 14 127/74 95 04/30/19 04:00 97.9 F 69 69 15 128/67 96 04/30/19 03:00 69 13 128/67 96 04/30/19 02:00 68 14 134/64 94 04/30/19 01:00 70 12 148/84 93 04/30/19 00:00 97.8 F 70 70 20 147/88 96 04/29/19 23:08 67 16 137/84 97 04/29/19 23:00 67 15 137/84 97 04/29/19 22:00 67 8 L 144/70 97 04/29/19 21:00 67 19 144/78 96 04/29/19 20:01 67 12 146/80 91 04/29/19 20:00 97.9 F 70 67 12 96 04/29/19 19:01 67 16 121/82 96 04/29/19 18:00 68 14 121/77 97 04/29/19 17:01 70 18 146/94 04/29/19 16:01 69 14 118/79 92 04/29/19 16:00 98.7 F 69 14 92 04/29/19 15:01 67 20 131/95 95 04/29/19 14:01 67 10 L 109/79 96 - Physical Examination General: No Apparent Distress HEENT: Positive: PERRL Neck: Positive: trachea midline Cardiac: Positive: Other (paced) Lungs: Positive: Decreased Breath Sounds - Labs and Meds Cardiac Enzymes 04/30/19 Range/Units 04:54 AST 20 (5-40) units/L Comprehensive Metabolic Panel 04/30/19 04/30/19 Range/Units 04:54 10:35 Sodium 144 141 (137-145) mmol/L Potassium 4.2 3.5 L (3.6-5.0) mmol/L Chloride 103.2 98.3 (98-107) mmol/L Carbon Dioxide 30 26 (22-30) mmol/L BUN 21 H 22 H (9-20) mg/dL Creatinine 1.4 1.2 (0.8-1.5) mg/dL Glucose 140 H 247 H (75-100) mg/dL Calcium 8.9 9.0 (8.4-10.2) mg/dL AST 20 (5-40) units/L ALT 30 (7-56) units/L Alkaline Phosphatase 67 (35-129) units/L Total Protein 6.3 (6.3-8.2) g/dL Albumin 3.4 L (3.9-5) g/dL <CONOR GHOTRA - Last Filed: 05/03/19 10:31> Assessment and Plan I've seen and evaluated the patient agree with the assessment and plan. The patient is presenting with complete heart block status post transvenous pacemaker, chronic kidney disease, congestive heart failure, COPD. Patient had a left heart catheterization showing showed multivessel coronary artery disease and ejection fraction 25-34%. Patient is currently awaiting transfer to tertiary care facility.
--- NOTE | 2019-04-30 16:01 | Progress Note ---
Assessment and Plan - Patient Problems (1) Chronic kidney disease, stage III (moderate) Current Visit: Yes Status: Acute Plan to address problem: Chronic kidney disease stage III creatinine in 2015 was 2.11 Current creatinine is 1.2 Chest x-ray with pulmonary congestion on admission Repeat chest x-ray today Received contrast yesterday there is some risk for contrast injury and we will usually recommend holding diuretics in the post contrast. Cardiology has been managing diuretics We'll follow for 1 more day if no evidence of injury will sign off avoid nephrotoxins (2) CHF (congestive heart failure) Current Visit: Yes Status: Acute Plan to address problem: Congestive heart failure reviewed echocardiogram with marked reduced EF : 25-30% Chest x-ray revealed With bilateral right greater than left basilar opacities consistent with pulmonary congestion Received 2 mg of Bumex recommended Bumex 1 mg IV twice a day (3) Symptomatic bradycardia Current Visit: Yes Status: Acute Plan to address problem: Symptomatic bradycardia has received external pacing (4) Metabolic acidosis Current Visit: Yes Status: Acute Plan to address problem: Metabolic acidosis Due to chronic kidney disease should improve with diuresis Subjective Principal diagnosis: Complete heart block s/p transvenous pacemaker; COPD; Morbid obesity Interval history: 78-year-old gentleman with a significant medical history of hypertension, congestive heart failure, chronic kidney disease. Admitted with syncope while using the bathroom. He was also found to have symptomatic bradycardia nephrology consulted He reports some cough with some persistent phlegm also complains of subjective fevers Denies sick contacts he has associated orthopnea and PND as well as lower extremity edema He was admitted to the ICU and was started on external pacing for his bradycardia he does report history of chronic kidney disease Dr. Ibanez creatinine in 2015 was 2.1 patient seen today, doing well , received contrast yesterday has some risk for contrast injury no edema today repeat CXR. Objective - Vital Signs Vital signs: Vital Signs - 12hr 04/30/19 04/30/19 04/30/19 04:00 05:00 06:00 Temperature 97.9 F Pulse Rate 69 70 71 Pulse Rate [ 69 From Monitor] Respiratory 15 14 16 Rate Blood Pressure 128/67 127/74 123/70 O2 Sat by Pulse 96 95 97 Oximetry 04/30/19 04/30/19 04/30/19 07:00 08:00 09:00 Temperature 98.2 F Pulse Rate 73 69 73 Pulse Rate [ 71 From Monitor] Respiratory 18 19 Rate Blood Pressure 132/72 132/72 114/75 O2 Sat by Pulse 95 96 96 Oximetry 04/30/19 04/30/19 04/30/19 10:00 11:00 12:00 Temperature 98.4 F Pulse Rate 68 67 67 Pulse Rate [ 67 From Monitor] Respiratory 15 12 11 L Rate Blood Pressure 141/64 143/68 123/81 O2 Sat by Pulse 94 94 95 Oximetry 04/30/19 13:00 Temperature Pulse Rate 71 Pulse Rate [ From Monitor] Respiratory 9 L Rate Blood Pressure 123/81 O2 Sat by Pulse 96 Oximetry - General Appearance General appearance: well-developed, well-nourished EENT: ATNC, PERRL Neck: no JVD Respiratory: Present: Clear to Ascultation Cardiology: regular, S1S2 Gastrointestinal: normal, normoactive bowel sounds Integumentary: no rash Neurologic: alert and oriented x3, CN 3-12 intact Musculoskeletal: other (no edema. ) Psychiatric: mood/affect appropriate - Lab 04/27/19 13:24 04/30/19 10:35 Most recent lab results Calcium 9.0 mg/dL (8.4-10.2) 04/30/19 10:35 Magnesium 2.10 mg/dL (1.7-2.3) 04/27/19 13:24 Medications & Allergies - Medications Allergies/Adverse Reactions: Allergies No Known Allergies Allergy (Unverified 02/14/15 14:25) Home Medications: Home Medications Medication Instructions Recorded Confirmed Last Taken Type Furosemide [Lasix TAB] 40 mg PO QDAY 02/14/15 04/27/19 04/26/19 History Simvastatin [Zocor TAB] 40 mg PO QHS 02/14/15 04/27/19 04/26/19 History carvediloL [Coreg] 6.25 mg PO BID 02/14/15 04/27/19 04/26/19 History Allopurinol [Zyloprim] 300 mg PO QDAY 04/27/19 04/27/19 04/26/19 History Calcitriol [Rocaltrol] 0.25 mcg PO 3XW 04/27/19 04/27/19 Unknown History Glimepiride [Amaryl] 2 mg PO QAM 04/27/19 04/27/19 04/26/19 History Active Medications: Generic Name Dose Route Start Last Admin Trade Name Freq PRN Reason Stop Dose Admin Al Hydrox/Mg Hydrox/Simethicone 30 ml 04/28/19 03:35 04/28/19 03:55 Alum-Mag Hydrox-Simeth 004-708-07og/5ml PO 30 ml Q6H PRN Administration Indigestion Albuterol 2.5 mg 04/29/19 15:56 Proventil IH Q4HRT PRN Shortness Of Breath Dextrose 50 ml 04/27/19 15:44 D50w (25gm) Syringe IV Q30MIN PRN Hypoglycemia Protocol Furosemide 60 mg 04/28/19 18:00 04/30/19 05:25 Lasix IV 60 mg 0600,1800 MARTINEZ Administration Hydralazine HCl 10 mg 04/29/19 15:55 Apresoline IV Q4HR PRN HTN SBP>170 Insulin Human Lispro 0 unit 04/27/19 18:00 04/30/19 12:17 Humalog SUB-Q 3 unit Q6HR MARTINEZ Administration Protocol Latanoprost 1 drops 04/27/19 22:00 04/29/19 22:25 Latanoprost 0.005% OU 1 drops QHS MARTINEZ Administration Sodium Chloride 10 ml 04/27/19 22:00 04/30/19 09:48 Sodium Chloride Flush Syringe 10 Ml IV 10 ml BID MARTINEZ Administration Sodium Chloride 10 ml 04/27/19 14:10 Sodium Chloride Flush Syringe 10 Ml IV PRN PRN LINE FLUSH
--- NOTE | 2019-04-30 17:58 | XRay Report ---
CHEST 1 VIEW INDICATION / CLINICAL INFORMATION: pulmonary edema.. COMPARISON: None available. FINDINGS: SUPPORT DEVICES: None. HEART / MEDIASTINUM: Enlarged. LUNGS / PLEURA: Mild bilateral interstitial edema. Small pleural effusions. Signer Name: Fabrice Kirkland MD Signed: 04/30/2019 5:53 PM Workstation Name: [id number]
[2019-04-30 23:04] VITALS: BP 158/101
[2019-04-30] MEDS: LATANOPROST 0.005% OPHTH SOLN 2.5 ML OU SCH (23:13)
--- NOTE | 2019-05-01 08:09 | Discharge Summary ---
Providers - Providers Date of Admission: 04/27/19 14:10 Date of discharge: 04/30/19 Attending physician: JC TORREZ 04/27/19 14:20 Consult to Physician [CONS] Routine Comment: Consulting Provider: RODDY OREILLY Physician Instructions: Reason For Exam: Heart block/External pacing 04/27/19 14:22 Consult to Physician [CONS] Routine Comment: Consulting Provider: SHASHA SORIANO Physician Instructions: Reason For Exam: KARINE 04/27/19 14:54 Consult to Physician [CONS] Routine Comment: DR RICARDO CASAS W/DR HERNANDEZ @[id number] Consulting Provider: LUPIS HERNANDEZ Physician Instructions: Reason For Exam: sxs andrea 04/29/19 11:17 Consult to Cardiac Rehabilitation [CONS] Routine Reason For Exam: Cardiac Rehab Evaluation [facility] Reason for admission: Complete heart block Condition: Serious Procedures: Transvenous pacemaker placement [facility] Hospital course: Final discharge diagnosis/Hospital course: Complete heart block -s/p transvenous pacemaker -coreg discontinued Acute on chronic systolic HF with EF of 25-30% -treated with IV diuretics -not on BB due to bradycardia -not on ACEI due to CKD Multivessel CAD per [facility] -Per cardiology, plan is refer pt to tertiary care center for further revasc and device therapy. Transaminitis, resolved Metabolic acidosis, resolved CKD stage 3 -Patient's baseline creatinine level was 2.1 in 2014, currently 1.2 History of COPD HTN Pt was transferred to [facility] for further evaluation and management as recommended by the cold rolling machine setter Dis[id number] IP Time spent for discharge: 40 minutes Core Measure Documentation - Palliative Care Palliative Care/ Comfort Measures: Not Applicable - Core Measures Any of the following diagnoses?: none Exam - Constitutional Vitals: Temp Pulse Resp BP Pulse Ox 97.5 F L 67 17 158/101 97 04/30/19 20:00 04/30/19 23:00 04/30/19 23:00 04/30/19 23:00 04/30/19 23:00 General appearance: Present: no acute distress, well-nourished - EENT Eyes: Present: PERRL, EOM intact ENT: hearing intact, clear oral mucosa - Neck Neck: Present: supple, normal ROM - Respiratory Respiratory effort: normal Respiratory: bilateral: CTA - Cardiovascular Rhythm: regular Heart Sounds: Present: S1 & S2. Absent: rub, click - Extremities Extremities: No edema - Abdominal General gastrointestinal: Present: soft, non-tender, non-distended, normal bowel sounds Male genitourinary: Present: deferred - Integumentary Integumentary: Present: clear, warm, dry - Musculoskeletal Musculoskeletal: gait normal, strength equal bilaterally - Psychiatric Psychiatric: appropriate mood/affect, intact judgment & insight - Neurologic Neurologic: CNII-XII intact, moves all extremities Plan [facility] Y[facility] [Primary Care Provider] - 7 Days
== END 2019-04-30 23:51 | disposition short-term general hospital (02) | DRG 286 ==
LOC: ED 12:34 → CC1 14:10 → IMCU 04-28 00:13
PROVIDERS: ADMIT Internal Medicine; ATTEND Internal Medicine
PROC: 5A1223Z Performance of Cardiac Pacing, Continuous (ICD-10-PCS; principal; 2019-04-27)
PROC: 4A023N7 Measurement of Cardiac Sampling and Pressure, Left Heart, Percutaneous Approach (ICD-10-PCS; 2019-04-29)
PROC: B2111ZZ Fluoroscopy of Multiple Coronary Arteries using Low Osmolar Contrast (ICD-10-PCS; 2019-04-29)
DX: I44.2 Atrioventricular block, complete (principal); I50.43 Acute on chronic combined systolic (congestive) and diastolic (congestive) heart failure; E87.2 Acidosis; E66.2 Morbid (severe) obesity with alveolar hypoventilation; I13.0 Hypertensive heart and chronic kidney disease with heart failure and stage 1 through stage 4 chronic kidney disease, or unspecified chronic kidney disease; N18.3 Chronic kidney disease, stage 3 (moderate); R00.1 Bradycardia, unspecified; I87.2 Venous insufficiency (chronic) (peripheral); J44.9 Chronic obstructive pulmonary disease, unspecified; R74.0 Nonspecific elevation of levels of transaminase and lactic acid dehydrogenase [LDH]; S00.81XA Abrasion of other part of head, initial encounter; R09.02 Hypoxemia; I25.10 Atherosclerotic heart disease of native coronary artery without angina pectoris; E11.22 Type 2 diabetes mellitus with diabetic chronic kidney disease; Z68.39 Body mass index [BMI] 39.0-39.9, adult; Z86.73 Personal history of transient ischemic attack (TIA), and cerebral infarction without residual deficits; Z79.899 Other long term (current) drug therapy; Y93.89 Activity, other specified; Y92.89 Other specified places as the place of occurrence of the external cause; Y99.8 Other external cause status
CPT/HCPCS: 33210; 36415; 70450; 71045; 80048; 80053; 80307; 81001; 82962; 83735; 83880; 84436; 84443; 84484; 85025; 85610; 93005; 93010; 93306; 93458; 94760; G0378; C1894; J0461; J0690; J1644; J1815; J1940; J2250; J3010; J7030; J7040; Q9967